=== PATIENT | female | born 1975 | race American Indian/Alaskan Native ===

== ENCOUNTER 2020-09-15 14:44 | Inpatient (IN) | payer SELFPAY ==
[2020-09-15 17:53] LABS: Hemoglobin 6.2 gm/dl (10.1-14.3); Mean Corpuscular HGB Conc 32 % (30-34); Mean Corpuscular Volume 75 fl (79-97); Platelet Count 111 K/mm3 (140-440); Red Blood Count 2.62 M/mm3 (3.65-5.03); Red Cell Distribution Width 19.4 % (13.2-15.2)
[2020-09-15 18:02] LABS: Albumin 3.7 g/dL (3.9-5); Calcium 8.7 mg/dL (8.4-10.2)
--- NOTE | 2020-09-15 18:05 | Event Note ---
ED Screening Note Date of service: 09/15/20 Time: 18:04 ED Screening Note: 45-year-old -[place] female presents to the emergency room for 2-week history of vaginal bleeding. Patient has a history of hypertension and has not been taking any medications. Review of labs shows that patient's creatinine is 5.2 her GFR is 11 with no history of kidney failure. Patient has a negative test. This initial assessment/diagnostic orders/clinical plan/treatment(s) is/are subject to change based on patients health status, clinical progression and re- assessment by fellow clinical providers in the ED. Further treatment and workup at subsequent clinical providers discretion. Patient/guardian urged not to elope from the ED as their condition may be serious if not clinically assessed and managed. Initial orders include: Labs have been ordered. inform Dr. Pryor of patient's condition
[2020-09-15 18:07] LABS: Hematocrit 19.7 % (30.3-42.9)
[2020-09-15] MEDS ORDERED: ASPIRIN 325 MG TAB PO ONE (18:10)
[2020-09-15] MEDS ORDERED: niCARdipine DRIP 40 MG/200 ML BAG IV ONE (19:02)
[2020-09-15] MEDS ORDERED: SODIUM CHLORIDE 0.9% 500 ML 500 ML IV ONE (19:11)
[2020-09-15 19:15] LABS: Total Cells Counted 100
[2020-09-15 19:16] LABS: Anisocytosis Few; Hypochromasia 1+
--- NOTE | 2020-09-15 19:19 | Emergency Department Report ---
ED Female HPI - General Chief complaint: Vaginal Bleeding Stated complaint: ABD PAIN/HEAVING BLEEDING Time Seen by Provider: 09/15/20 19:01 Source: patient Mode of arrival: Ambulatory Limitations: No Limitations - History of Present Illness Initial comments: 45-year-old female with a past medical history of hypertension and obesity presents to the hospital complaints of vaginal bleeding since August 20. Patient had her menses patient states she had a heavy menses which progressed to worsening bleeding with multiple large blood clots. She states bleeding is late today but she is having generalized weakness, dyspnea on exertion, fatigue, and palpitations. Patient denies chest pressure but states she has a gas feeling in her chest. Patient states she does have a history of heavy menses but denies irregular or prolonged vaginal bleeding. She has a history of hypertension however, she has been off of meds for at least 1 year. She denies cardiac history, headache, or decrease in urine output. - Related Data Allergies Allergy/AdvReac Type Severity Reaction Status Date / Time No Known Allergies Allergy Unverified 09/15/20 16:52 ED Review of Systems ROS: Stated complaint: ABD PAIN/HEAVING BLEEDING Other details as noted in HPI Comment: All other systems reviewed and negative ED Past Medical Hx - Past Medical History Hx Hypertension: Yes - Surgical History Past Surgical History?: No - Social History Smoking Status: Never Smoker ED Physical Exam - General Limitations: No Limitations - Other Other exam information: General: No acute distress Head: Atraumatic Eyes: normal appearance ENT: Moist mucous membranes Neck: Normal appearance, no midline tenderness Chest: Clear to auscultation bilaterally CV: Mild tachycardia, regular rhythm Abdomen: Soft, normal bowel sounds, nontender, nondistended, no rebound or guarding Back: Normal inspection Extremity: Normal inspection, full range of motion, no calf tenderness or leg edema Neuro: Alert O x 3, no facial asymmetry, speech clear, no gross motor sensory deficit Psych: Appropriate behavior Skin: No rash ED Course Vital Signs 09/15/20 09/15/20 09/15/20 16:51 19:04 19:15 Temperature 98.1 F 98.1 F Pulse Rate 110 H 110 H 101 H Respiratory 18 18 23 Rate Blood Pressure 245/142 250/147 Blood Pressure 250/147 [Right] O2 Sat by Pulse 98 100 99 Oximetry 09/15/20 09/15/20 09/15/20 19:31 19:45 20:00 Temperature Pulse Rate 101 H 98 H 98 H Respiratory 24 18 17 Rate Blood Pressure 250/147 250/147 250/147 Blood Pressure [Right] O2 Sat by Pulse 98 99 99 Oximetry 09/15/20 09/15/20 09/15/20 20:16 20:30 20:46 Temperature Pulse Rate 112 H Respiratory 16 Rate Blood Pressure 230/121 182/106 154/82 Blood Pressure [Right] O2 Sat by Pulse 98 94 96 Oximetry 09/15/20 09/15/20 09/15/20 21:00 21:15 21:30 Temperature Pulse Rate 123 H Respiratory 21 Rate Blood Pressure 154/82 174/100 183/94 Blood Pressure [Right] O2 Sat by Pulse 100 97 95 Oximetry 09/15/20 09/15/20 09/15/20 21:45 21:59 22:00 Temperature 98.3 F Pulse Rate 124 H 115 H 117 H Respiratory 24 16 18 Rate Blood Pressure 165/93 165/93 166/105 Blood Pressure [Right] O2 Sat by Pulse 93 96 94 Oximetry 09/15/20 09/15/20 09/15/20 22:14 22:15 22:30 Temperature 98.3 F Pulse Rate 117 H 114 H 117 H Respiratory 16 13 14 Rate Blood Pressure 155/93 155/93 164/101 Blood Pressure [Right] O2 Sat by Pulse 97 93 97 Oximetry 09/15/20 09/15/20 09/15/20 22:44 22:46 23:00 Temperature 98.2 F Pulse Rate 110 H 132 H 110 H Respiratory 16 23 15 Rate Blood Pressure 191/118 199/101 191/118 Blood Pressure [Right] O2 Sat by Pulse 96 99 99 Oximetry 09/15/20 09/15/20 09/16/20 23:14 23:15 00:03 Temperature 98.2 F 97.8 F Pulse Rate 110 H 109 H 118 H Respiratory 16 19 20 Rate Blood Pressure 205/122 205/122 Blood Pressure 166/100 [Right] O2 Sat by Pulse 95 98 Oximetry - Reevaluation(s) Reevaluation #1: 09/15/20 21:13 second trop stable without increase - Consultations Consultation #1: 09/15/20 19:26 case d/w Dr Montes nephrology,Renal US pending. will consult case d/w Dr K nuñez Cardiology, no heparin recommended at this time. Agrees to recheck troponin and will consult 09/15/20 19:43 Dr Negron,BLANKING PRESS OPERATOR, Pelvis/Trans vag US pending, Will consult 09/15/20 21:17 case d/w Dr Orellana ICU attending since pt is an ICU admission ED Medical Decision Making - Lab Data Result diagrams: 09/15/20 17:17 09/15/20 17:17 Lab Results 09/15/20 09/15/20 09/15/20 Range/Units 17:17 17:17 17:17 WBC 9.3 (4.5-11.0) K/mm3 RBC 2.62 L (3.65-5.03) M/mm3 Hgb 6.2 L (10.1-14.3) gm/dl Hct 19.7 L* (30.3-42.9) % MCV 75 L (79-97) fl MCH 24 L (28-32) pg MCHC 32 (30-34) % RDW 19.4 H (13.2-15.2) % Plt Count 111 L (140-440) K/mm3 Add Manual Diff Complete Total Counted 100 Seg Neuts % (Manual) 62.0 (40.0-70.0) % Lymphocytes % (Manual) 21.0 (13.4-35.0) % Monocytes % (Manual) 11.0 H (0.0-7.3) % Eosinophils % (Manual) 5.0 H (0.0-4.3) % Basophils % (Manual) 1.0 (0.0-1.8) % Nucleated RBC % Not Reportable Seg Neutrophils # Man 5.8 (1.8-7.7) K/mm3 Band Neutrophils # 0.0 K/mm3 Lymphocytes # (Manual) 2.0 (1.2-5.4) K/mm3 Abs React Lymphs (Man) 0.0 K/mm3 Monocytes # (Manual) 1.0 H (0.0-0.8) K/mm3 Eosinophils # (Manual) 0.5 H (0.0-0.4) K/mm3 Basophils # (Manual) 0.1 (0.0-0.1) K/mm3 Metamyelocytes # 0.0 K/mm3 Myelocytes # 0.0 K/mm3 Promyelocytes # 0.0 K/mm3 Blast Cells # 0.0 K/mm3 WBC Morphology Not Reportable Hypersegmented Neuts Not Reportable Hyposegmented Neuts Not Reportable Hypogranular Neuts Not Reportable Smudge Cells Not Reportable Toxic Granulation Not Reportable Toxic Vacuolation Not Reportable Dohle Bodies Not Reportable Pelger-Huet Anomaly Not Reportable Apolinar Rods Not Reportable Platelet Estimate Not Reportable Clumped Platelets Not Reportable Plt Clumps, EDTA Not Reportable Large Platelets Not Reportable Giant Platelets Not Reportable Platelet Satelliting Not Reportable Plt Morphology Comment Not Reportable RBC Morphology Not Reportable Dimorphic RBCs Not Reportable Polychromasia Not Reportable Hypochromasia 1+ Poikilocytosis Not Reportable Anisocytosis Few Microcytosis Few Macrocytosis Not Reportable Spherocytes Not Reportable Pappenheimer Bodies Not Reportable Sickle Cells Not Reportable Target Cells Not Reportable Tear Drop Cells Not Reportable Ovalocytes Not Reportable Helmet Cells Not Reportable [place] Bodies Not Reportable [place] Rings Not Reportable [place] Cells Not Reportable Bite Cells Not Reportable Crenated Cell Not Reportable Elliptocytes Not Reportable Acanthocytes (Spur) Not Reportable Rouleaux Not Reportable Hemoglobin C Crystals Not Reportable Schistocytes Not Reportable Malaria parasites Not Reportable Malcolm Bodies Not Reportable Hem Pathologist Commnt No Sodium 137 (137-145) mmol/L Potassium 3.4 L (3.6-5.0) mmol/L Chloride 96.4 L (98-107) mmol/L Carbon Dioxide 32 H (22-30) mmol/L Anion Gap 12 mmol/L BUN 49 H (7-17) mg/dL Creatinine 5.2 H (0.6-1.2) mg/dL Estimated GFR 11 ml/min BUN/Creatinine Ratio 9 % Glucose 114 H (65-100) mg/dL Calcium 8.7 (8.4-10.2) mg/dL Total Bilirubin 0.20 (0.1-1.2) mg/dL AST 17 (5-40) units/L ALT 14 (7-56) units/L Alkaline Phosphatase 49 (35-129) units/L Troponin T (0.00-0.029) ng/mL Total Protein 6.9 (6.3-8.2) g/dL Albumin 3.7 L (3.9-5) g/dL Albumin/Globulin Ratio 1.2 % HCG, Quant (0-4) mIU/mL Blood Type A POSITIVE Antibody Screen Negative Crossmatch See Detail 09/15/20 09/15/20 Range/Units 17:17 17:17 WBC (4.5-11.0) K/mm3 RBC (3.65-5.03) M/mm3 Hgb (10.1-14.3) gm/dl Hct (30.3-42.9) % MCV (79-97) fl MCH (28-32) pg MCHC (30-34) % RDW (13.2-15.2) % Plt Count (140-440) K/mm3 Add Manual Diff Total Counted Seg Neuts % (Manual) (40.0-70.0) % Lymphocytes % (Manual) (13.4-35.0) % Monocytes % (Manual) (0.0-7.3) % Eosinophils % (Manual) (0.0-4.3) % Basophils % (Manual) (0.0-1.8) % Nucleated RBC % Seg Neutrophils # Man (1.8-7.7) K/mm3 Band Neutrophils # K/mm3 Lymphocytes # (Manual) (1.2-5.4) K/mm3 Abs React Lymphs (Man) K/mm3 Monocytes # (Manual) (0.0-0.8) K/mm3 Eosinophils # (Manual) (0.0-0.4) K/mm3 Basophils # (Manual) (0.0-0.1) K/mm3 Metamyelocytes # K/mm3 Myelocytes # K/mm3 Promyelocytes # K/mm3 Blast Cells # K/mm3 WBC Morphology Hypersegmented Neuts Hyposegmented Neuts Hypogranular Neuts Smudge Cells Toxic Granulation Toxic Vacuolation Dohle Bodies Pelger-Huet Anomaly Apolinar Rods Platelet Estimate Clumped Platelets Plt Clumps, EDTA Large Platelets Giant Platelets Platelet Satelliting Plt Morphology Comment RBC Morphology Dimorphic RBCs Polychromasia Hypochromasia Poikilocytosis Anisocytosis Microcytosis Macrocytosis Spherocytes Pappenheimer Bodies Sickle Cells Target Cells Tear Drop Cells Ovalocytes Helmet Cells [place] Bodies [place] Rings Maria Elena Cells Bite Cells Crenated Cell Elliptocytes Acanthocytes (Spur) Rouleaux Hemoglobin C Crystals Schistocytes Malaria parasites Malcolm Bodies Hem Pathologist Commnt Sodium (137-145) mmol/L Potassium (3.6-5.0) mmol/L Chloride (98-107) mmol/L Carbon Dioxide (22-30) mmol/L Anion Gap mmol/L BUN (7-17) mg/dL Creatinine (0.6-1.2) mg/dL Estimated GFR ml/min BUN/Creatinine Ratio % Glucose (65-100) mg/dL Calcium (8.4-10.2) mg/dL Total Bilirubin (0.1-1.2) mg/dL AST (5-40) units/L ALT (7-56) units/L Alkaline Phosphatase (35-129) units/L Troponin T 0.092 H (0.00-0.029) ng/mL Total Protein (6.3-8.2) g/dL Albumin (3.9-5) g/dL Albumin/Globulin Ratio % HCG, Quant < 2 (0-4) mIU/mL Blood Type Antibody Screen Crossmatch - EKG Data -: EKG Interpreted by De EKG shows normal: sinus rhythm, ST-T waves (LVH with strain pattern lateral T wave inversions) Rate: tachycardia (115) - EKG Data When compared to previous EKG there are: previous EKG unavailable - Radiology Data Radiology results: report reviewed Chest x-ray: Possible small left pleural effusion Pelvic ultrasound: 5.6 cm cystic ovarian lesion without evidence of abnormal vascularity or definite soft tissue component or internal echogenicity on this slightly limited examination. Recommend further evaluation with repeat ultrasound in 8 to 12 weeks. 5 cm uterine fibroid Renal ultrasound: Slight limited examination with echogenic appearance of the kidneys and possible cortical thinning. Finding suggest chronic medical renal disease. No evidence of obstructive uropathy - Medical Decision Making 45-year-old female presents to the hospital heavy vaginal bleeding and symptoms of symptomatic anemia. Patient states vaginal bleeding is now smoking pipe repairer. Hemoglobin 6.2. 1 unit of PRBC ordered. Ultrasound ordered and pending. BLANKING PRESS OPERATOR consulted and will evaluate. Patient also has significantly elevated blood pressure with renal insufficiency (no previous creatinine for comparison and patient denies no history), and elevated troponin. Cardene drip initiated for hypertensive emergency. EKG suggestive of LVH with strain without acute ST elevation MT. Chest very suggestive of small pleural effusion. Case discussed with fundraising sale representative and heparin not recommended at this time. P.o. aspirin provided. Repeat troponin pending. Case also discussed with geosciences faculty member. Renal ultrasound pending and will follow. Case discussed with hospitalist Dr. Hatfield for admission. Critical Care Time: Yes Critical care time in (mins) excluding proc time.: 35 Critical care attestation.: If time is entered above; I have spent that time in minutes in the direct care of this critically ill patient, excluding procedure time. ED Disposition Clinical Impression: Hypertensive emergency, Renal insufficiency, Menorrhagia, Symptomatic anemia, Elevated troponin, Noncompliance with medication regimen Disposition: OP ADMIT IP TO THIS HOSP Is pt being admited?: Yes Condition: Stable Time of Disposition: 19:48 (Dr Hatfield/hosp)
--- NOTE | 2020-09-15 19:29 | XRay Report ---
CHEST 1 VIEW 09/15/2020 6:59 PM INDICATION / CLINICAL INFORMATION: dizziness. Abdominal pain with weakness and dizziness. COMPARISON: None available. FINDINGS: SUPPORT DEVICES: None. HEART / MEDIASTINUM: No significant abnormality. LUNGS / PLEURA: No acute airspace disease. Possible small left pleural effusion. No pneumothorax. ADDITIONAL FINDINGS: No significant additional findings. IMPRESSION: 1. Possible small left pleural effusion. Signer Name: Derick John MD Signed: 09/15/2020 7:25 PM Workstation Name: [id number]
[2020-09-15] MEDS ORDERED: ONDANSETRON 4 MG/2 ML INJ IV PRN (21:00)
[2020-09-15] MEDS ORDERED: ALPRAZolam 0.5 MG TAB PO ONE (21:13)
[2020-09-15] MEDS ORDERED: oxyCODONE /ACETAMINOPHEN 5-325MG TAB PO ONE (21:15)
[2020-09-15] MEDS ORDERED: oxyCODONE /ACETAMINOPHEN 5-325MG TAB PO PRN (21:36)
[2020-09-15 21:38] LABS: Chol/HDL Ratio 3.11 %
--- NOTE | 2020-09-15 22:43 | History and Physical Report ---
History of Present Illness Date of examination: 09/15/20 Date of admission: 09/15/20 19:48 Chief complaint: of vaginal bleeding x2 weeks History of present illness: 45-year-old -[place] female with history of uncontrolled hypertension who presents to [facility] ED with complaints of prolonged vaginal bleeding x2 weeks. Patient states she had a heavy menstrual cycle which progressed to worsening bleeding with multiple large clots. Patient admits to history of menorrhagia but denies prolonged vaginal bleeding. Additionally she complains of gene ralized weakness, dyspnea on exertion, fatigue and palpitations. Patient has history of hypertension but admits to being off medication for the past year. While in the ED patient blood pressure was 250/140 and she was noted to be in hypertensive urgency, subsequently started on heparin drip. At time of my examination patient is tearful and seems a bit anxious. She states that she is upset that she let her health get out of control. Denies chest pain fever, chills, sore throat, hematuria, hematochezia, abdominal pain, oliguria, recent sick contacts Past History Past Medical History: hypertension, other (Menorrhagia) Past Surgical History: No surgical history Social history: single, full code, other (Lives with daughter). denies: smoking, alcohol abuse, prescription drug abuse, IV drug use Family history: hypertension Medications and Allergies Allergies Allergy/AdvReac Type Severity Reaction Status Date / Time No Known Allergies Allergy Unverified 09/15/20 16:52 Active Meds: Active Medications Acetaminophen (Acetaminophen 325 Mg Tab) 650 mg PO Q4H PRN PRN Reason: Pain MILD(1-3)/Fever >100.5/ESPARZA Alprazolam (Alprazolam 0.5 Mg Tab) 0.5 mg PO Q8H PRN PRN Reason: Anxiety Docusate Sodium (Docusate Sodium 100 Mg Cap) 100 mg PO BID HANNAH Nicardipine/Sodium Chloride (Cardene Drip 40 Mg/200 Ml) 40 mg in 200 mls @ 25 mls/hr IV ONCE ONE; Protocol Stop: 09/16/20 03:01 Last Titration: 09/15/20 21:22 Dose: 2.5 mg/hr, 12.5 mls/hr Documented by: Ondansetron HCl (Ondansetron 4 Mg/2 Ml Inj) 4 mg IV Q8H PRN PRN Reason: Nausea And Vomiting Oxycodone/Acetaminophen (Oxycodone /Acetaminophen 5-325mg Tab) 1 tab PO Q4H PRN PRN Reason: Pain, Moderate (4-6) Sodium Chloride (Sodium Chloride 0.9% 10 Ml Flush Syringe) 10 ml IV BID HANNAH Sodium Chloride (Sodium Chloride 0.9% 10 Ml Flush Syringe) 10 ml IV PRN PRN PRN Reason: LINE FLUSH Review of Systems All systems: negative (Except as noted in HPI) Exam - Constitutional Vitals: Temp Pulse Resp BP Pulse Ox 98.3 F 117 H 18 166/105 94 09/15/20 21:59 09/15/20 22:00 09/15/20 22:00 09/15/20 22:00 09/15/20 22:00 HEART Score - HEART Score Troponin: Troponin T 0.090 ng/mL (0.00-0.029) H 09/15/20 20:19 Results - Labs CBC & Chem 7: 09/15/20 17:17 09/15/20 17:17 Labs: Laboratory Last Values WBC 9.3 K/mm3 (4.5-11.0) 09/15/20 17:17 RBC 2.62 M/mm3 (3.65-5.03) L 09/15/20 17:17 Hgb 6.2 gm/dl (10.1-14.3) L 09/15/20 17:17 Hct 19.7 % (30.3-42.9) L* 09/15/20 17:17 MCV 75 fl (79-97) L 09/15/20 17:17 MCH 24 pg (28-32) L 09/15/20 17:17 MCHC 32 % (30-34) 09/15/20 17:17 RDW 19.4 % (13.2-15.2) H 09/15/20 17:17 Plt Count 111 K/mm3 (140-440) L 09/15/20 17:17 Add Manual Diff Complete 09/15/20 17:17 Total Counted 100 09/15/20 17:17 Seg Neuts % (Manual) 62.0 % (40.0-70.0) 09/15/20 17:17 Lymphocytes % (Manual) 21.0 % (13.4-35.0) 09/15/20 17:17 Monocytes % (Manual) 11.0 % (0.0-7.3) H 09/15/20 17:17 Eosinophils % (Manual) 5.0 % (0.0-4.3) H 09/15/20 17:17 Basophils % (Manual) 1.0 % (0.0-1.8) 09/15/20 17:17 Nucleated RBC % Not Reportable 09/15/20 17:17 Seg Neutrophils # Man 5.8 K/mm3 (1.8-7.7) 09/15/20 17:17 Band Neutrophils # 0.0 K/mm3 09/15/20 17:17 Lymphocytes # (Manual) 2.0 K/mm3 (1.2-5.4) 09/15/20 17:17 Abs React Lymphs (Man) 0.0 K/mm3 09/15/20 17:17 Monocytes # (Manual) 1.0 K/mm3 (0.0-0.8) H 09/15/20 17:17 Eosinophils # (Manual) 0.5 K/mm3 (0.0-0.4) H 09/15/20 17:17 Basophils # (Manual) 0.1 K/mm3 (0.0-0.1) 09/15/20 17:17 Metamyelocytes # 0.0 K/mm3 09/15/20 17:17 Myelocytes # 0.0 K/mm3 09/15/20 17:17 Promyelocytes # 0.0 K/mm3 09/15/20 17:17 Blast Cells # 0.0 K/mm3 09/15/20 17:17 WBC Morphology Not Reportable 09/15/20 17:17 Hypersegmented Neuts Not Reportable 09/15/20 17:17 Hyposegmented Neuts Not Reportable 09/15/20 17:17 Hypogranular Neuts Not Reportable 09/15/20 17:17 Smudge Cells Not Reportable 09/15/20 17:17 Toxic Granulation Not Reportable 09/15/20 17:17 Toxic Vacuolation Not Reportable 09/15/20 17:17 Dohle Bodies Not Reportable 09/15/20 17:17 Pelger-Huet Anomaly Not Reportable 09/15/20 17:17 Apolinar Rods Not Reportable 09/15/20 17:17 Platelet Estimate Not Reportable 09/15/20 17:17 Clumped Platelets Not Reportable 09/15/20 17:17 Plt Clumps, EDTA Not Reportable 09/15/20 17:17 Large Platelets Not Reportable 09/15/20 17:17 Giant Platelets Not Reportable 09/15/20 17:17 Platelet Satelliting Not Reportable 09/15/20 17:17 Plt Morphology Comment Not Reportable 09/15/20 17:17 RBC Morphology Not Reportable 09/15/20 17:17 Dimorphic RBCs Not Reportable 09/15/20 17:17 Polychromasia Not Reportable 09/15/20 17:17 Hypochromasia 1+ 09/15/20 17:17 Poikilocytosis Not Reportable 09/15/20 17:17 Anisocytosis Few 09/15/20 17:17 Microcytosis Few 09/15/20 17:17 Macrocytosis Not Reportable 09/15/20 17:17 Spherocytes Not Reportable 09/15/20 17:17 Pappenheimer Bodies Not Reportable 09/15/20 17:17 Sickle Cells Not Reportable 09/15/20 17:17 Target Cells Not Reportable 09/15/20 17:17 Tear Drop Cells Not Reportable 09/15/20 17:17 Ovalocytes Not Reportable 09/15/20 17:17 Helmet Cells Not Reportable 09/15/20 17:17 [place] Bodies Not Reportable 09/15/20 17:17 [place] Rings Not Reportable 09/15/20 17:17 [place] Cells Not Reportable 09/15/20 17:17 Bite Cells Not Reportable 09/15/20 17:17 Crenated Cell Not Reportable 09/15/20 17:17 Elliptocytes Not Reportable 09/15/20 17:17 Acanthocytes (Spur) Not Reportable 09/15/20 17:17 Rouleaux Not Reportable 09/15/20 17:17 Hemoglobin C Crystals Not Reportable 09/15/20 17:17 Schistocytes Not Reportable 09/15/20 17:17 Malaria parasites Not Reportable 09/15/20 17:17 Malcolm Bodies Not Reportable 09/15/20 17:17 Hem Pathologist Commnt No 09/15/20 17:17 Sodium 137 mmol/L (137-145) 09/15/20 17:17 Potassium 3.4 mmol/L (3.6-5.0) L 09/15/20 17:17 Chloride 96.4 mmol/L (98-107) L 09/15/20 17:17 Carbon Dioxide 32 mmol/L (22-30) H 09/15/20 17:17 Anion Gap 12 mmol/L 09/15/20 17:17 BUN 49 mg/dL (7-17) H 09/15/20 17:17 Creatinine 5.2 mg/dL (0.6-1.2) H 09/15/20 17:17 Estimated GFR 11 ml/min 09/15/20 17:17 BUN/Creatinine Ratio 9 % 09/15/20 17:17 Glucose 114 mg/dL (65-100) H 09/15/20 17:17 Calcium 8.7 mg/dL (8.4-10.2) 09/15/20 17:17 Total Bilirubin 0.20 mg/dL (0.1-1.2) 09/15/20 17:17 AST 17 units/L (5-40) 09/15/20 17:17 ALT 14 units/L (7-56) 09/15/20 17:17 Alkaline Phosphatase 49 units/L (35-129) 09/15/20 17:17 Troponin T 0.090 ng/mL (0.00-0.029) H 09/15/20 20:19 Total Protein 6.9 g/dL (6.3-8.2) 09/15/20 17:17 Albumin 3.7 g/dL (3.9-5) L 09/15/20 17:17 Albumin/Globulin Ratio 1.2 % 09/15/20 17:17 Triglycerides 116 mg/dL (2-149) 09/15/20 20:19 Cholesterol 159 mg/dL (50-199) 09/15/20 20:19 LDL Cholesterol Direct 98 mg/dL (50-130) 09/15/20 20:19 HDL Cholesterol 51 mg/dL (40-59) 09/15/20 20:19 Cholesterol/HDL Ratio 3.11 % 09/15/20 20:19 HCG, Quant < 2 mIU/mL (0-4) 09/15/20 17:17 Blood Type A POSITIVE 09/15/20 17:17 Antibody Screen Negative 09/15/20 17:17 Crossmatch See Detail 09/15/20 17:17 - Imaging and Cardiology Chest x-ray: report reviewed (Possible small left pleural effusion), image reviewed Young/IV: IV Catheter Type [Left Forearm INT / Saline Lock ] IV Catheter Type [Right INT / Saline Lock Antecubital] Assessment and Plan Assessment and plan: 45-year-old -[place] female with history of uncontrolled hypertension who presents to [facility] ED with complaints of prolonged vaginal bleeding x2 weeks. Hypertensive urgency -BP on admission 250/140 -Hx uncontrolled hypertension -Continue to monitor BP -On Cardene drip -Resume home antihypertensive meds to optimize BP, when appropriate Vaginal bleeding -Complains of heavy vaginal bleeding x2 weeks -History of menorrhagia -Ultrasound pelvis/transvaginal pending -MAINSPRING FABRICATION SUPERVISOR (Dr. Negron) consulted Anemia -Secondary to prolonged vaginal bleeding -Hemoglobin on admission 6.2 -1 unit PRBC ordered in ED, transfusion pending -Continue to monitor hemoglobin -Transfuse as needed Elevated troponin -Troponin now 0.090 (0.092 on presentation to ED) -We will continue to trend -Cardiology consulted (Dr. Haile), recommendations appreciated TAMARA -Cr on admission 5.2 -?? 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 Anton) -Avoid nephrotoxic agents -Renal dose all meds -Monitor renal function Advance Directives: No VTE prophylaxis?: Chemical Plan of care discussed with patient/family: Yes
--- NOTE | 2020-09-15 22:56 | Ultrasound Report ---
ULTRASOUND PELVIS INDICATION / CLINICAL INFORMATION: vaginal bleeding anemia. TECHNIQUE: Transabdominal. Duplex Color Doppler used: Yes. COMPARISON: None available FINDINGS: Technically difficult examination secondary to overlying bowel gas and patient positioning/ body habitus. UTERUS: Mildly enlarged at 11.5 x 5.1 x 6.1 cm. Heterogeneously echogenic focus at the anterosuperior fundus measuring 4.9 cm likely representing a fibroid. Endometrial thickness is 4 mm in this premeno pausal patient. RIGHT ADNEXA: Not visualized. LEFT ADNEXA: Enlarged left ovary measuring 6.6 x 5.2 x 5.4 cm. 5.4 by 4.3 x 3.4 cm cystic-appearing o varian lesion. No associated vascularity. Normal color Doppler blood flow. URINARY BLADDER: No significant abnormality. FREE FLUID: None. ADDITIONAL FINDINGS: None. IMPRESSION: 1. 5.4 cm cystic ovarian lesion without evidence of abnormal vascularity or definite soft tissue comp onent or internal echogenicity on this slightly limited examination. Recommend further evaluation wit h repeat ultrasound in 8-12 weeks. 2. 5 cm uterine fibroid. Signer Name: Carmine Rocha MD Signed: 09/15/2020 10:52 PM Workstation Name: [id number]
--- NOTE | 2020-09-15 22:58 | Ultrasound Report ---
ULTRASOUND RENAL INDICATION / CLINICAL INFORMATION: renal failure. COMPARISON: None available. FINDINGS: Technically difficult examination secondary to overlying bowel gas, patient positioning, an d patient body habitus. RIGHT KIDNEY: Length = 9.0 cm. - Echogenicity: Increased - Cortical Thickness: Decreased 0.7 cm. - Hydronephrosis: None. - Cyst or mass: No significant abnormality. - Stones: None seen. LEFT KIDNEY: Length = 10.06). cm. - Echogenicity: Increased. - Cortical Thickness: Decreased at 0.7 cm. - Hydronephrosis: None. - Cyst or mass: No significant abnormality. - Stones: None seen. URINARY BLADDER: No significant abnormality. FREE FLUID: None. ADDITIONAL FINDINGS: None. IMPRESSION: 1. Slightly limited examination with echogenic appearance of the kidneys and possible cortical thinni ng. Findings suggest chronic medical renal disease. No evidence of obstructive uropathy. Signer Name: Carmine Rocha MD Signed: 09/15/2020 10:54 PM Workstation Name: [email or web address]
--- NOTE | 2020-09-15 23:36 | Consultation ---
History of Present Illness Consult date: 09/15/20 Reason for consult: menorrhagia History of present illness: This is a 45-year-old female 4 para 3-0-1-3 who presented to the with anemia and abnormal uterine bleeding. Patient gives a history of heavy bleeding every month for 7 to 14 days of the last 2 years. Patient states however she started bleeding August 20 and has been bleeding ever since with intermittent heavy bleeding involving clots. She has not had this bleeding evaluated however does state that she knew that she was anemic. On arrival to the emergency room patient was noted to have a hemoglobin of 6.2. She states bleeding has decreased significantly. Of note patient states she had a Nexplanon placed approximately 4 years ago. Past History Past Medical History: hypertension Past Surgical History: [employer]CH[employer]IST History: denies: abnormal PAP smear, chlamydia, fibroids, gonorrhea, hepatitis B, hepatitis C, herpes, HIV, syphilis, trichomonas Social history: smoking (Occasional black and mild). denies: alcohol abuse, prescription drug abuse - Obstetrical History : 4 Para: 3 Hx # Term Pregnancies: 3 (All vaginal delivery) Spontaneous Abortions: 1 Number of Living Children: 3 Medications and Allergies Allergies Allergy/AdvReac Type Severity Reaction Status Date / Time No Known Allergies Allergy Unverified 09/15/20 16:52 Active Meds: Active Medications Acetaminophen (Acetaminophen 325 Mg Tab) 650 mg PO Q4H PRN PRN Reason: Pain MILD(1-3)/Fever >100.5/ESPARZA Alprazolam (Alprazolam 0.5 Mg Tab) 0.5 mg PO Q8H PRN PRN Reason: Anxiety Docusate Sodium (Docusate Sodium 100 Mg Cap) 100 mg PO BID HANNAH Nicardipine/Sodium Chloride (Cardene Drip 40 Mg/200 Ml) 40 mg in 200 mls @ 25 mls/hr IV ONCE ONE; Protocol Stop: 09/16/20 03:01 Last Titration: 09/15/20 23:17 Dose: 5 mg/hr, 25 mls/hr Documented by: Ondansetron HCl (Ondansetron 4 Mg/2 Ml Inj) 4 mg IV Q8H PRN PRN Reason: Nausea And Vomiting Oxycodone/Acetaminophen (Oxycodone /Acetaminophen 5-325mg Tab) 1 tab PO Q4H PRN PRN Reason: Pain, Moderate (4-6) Potassium Chloride (Potassium Chloride Er 20 Meq Tab) 20 meq PO ONCE ONE Stop: 09/15/20 23:46 Sodium Chloride (Sodium Chloride 0.9% 10 Ml Flush Syringe) 10 ml IV BID HANNAH Sodium Chloride (Sodium Chloride 0.9% 10 Ml Flush Syringe) 10 ml IV PRN PRN PRN Reason: LINE FLUSH - Vital Signs Vital signs: Vital Signs Temp Pulse Resp BP Pulse Ox 98.1 F 110 H 18 245/142 98 09/15/20 16:51 09/15/20 16:51 09/15/20 16:51 09/15/20 16:51 09/15/20 16:51 Temp Pulse Resp BP Pulse Ox 98.2 F 109 H 19 205/122 95 09/15/20 23:14 09/15/20 23:15 09/15/20 23:15 09/15/20 23:15 09/15/20 23:15 - Physical Exam Breasts: Positive: deferred Abdomen: Positive: soft. Negative: distention, tenderness, guarding, mass, rigidity Genitourinary (Female): Positive: normal external genitalia, normal perenium Vulva: both: normal Vagina: Positive: normal moisture, other (Small amount of blood in the vagina but no active bleeding noted from the cervix.) Cervix: Positive: other (Grossly normal) Uterus: Positive: other (Difficult to palpate due to guarding) Adnexa: both: normal ( difficult to palpate due to guarding) Anus/Rectum: Positive: normal perianal skin Extremities: Positive: normal, other (Nexplanon palpated in her left medial upper arm) Results Result Diagrams: 09/15/20 17:17 09/15/20 17:17 Abnormal lab results 09/15/20 09/15/20 09/15/20 Range/Units 17:17 17:17 17:17 RBC 2.62 L (3.65-5.03) M/mm3 Hgb 6.2 L (10.1-14.3) gm/dl Hct 19.7 L* (30.3-42.9) % MCV 75 L (79-97) fl MCH 24 L (28-32) pg RDW 19.4 H (13.2-15.2) % Plt Count 111 L (140-440) K/mm3 Monocytes % (Manual) 11.0 H (0.0-7.3) % Eosinophils % (Manual) 5.0 H (0.0-4.3) % Monocytes # (Manual) 1.0 H (0.0-0.8) K/mm3 Eosinophils # (Manual) 0.5 H (0.0-0.4) K/mm3 Potassium 3.4 L (3.6-5.0) mmol/L Chloride 96.4 L (98-107) mmol/L Carbon Dioxide 32 H (22-30) mmol/L BUN 49 H (7-17) mg/dL Creatinine 5.2 H (0.6-1.2) mg/dL Glucose 114 H (65-100) mg/dL Troponin T (0.00-0.029) ng/mL Albumin 3.7 L (3.9-5) g/dL Crossmatch See Detail 09/15/20 09/15/20 Range/Units 17:17 20:19 RBC (3.65-5.03) M/mm3 Hgb (10.1-14.3) gm/dl Hct (30.3-42.9) % MCV (79-97) fl MCH (28-32) pg RDW (13.2-15.2) % Plt Count (140-440) K/mm3 Monocytes % (Manual) (0.0-7.3) % Eosinophils % (Manual) (0.0-4.3) % Monocytes # (Manual) (0.0-0.8) K/mm3 Eosinophils # (Manual) (0.0-0.4) K/mm3 Potassium (3.6-5.0) mmol/L Chloride (98-107) mmol/L Carbon Dioxide (22-30) mmol/L BUN (7-17) mg/dL Creatinine (0.6-1.2) mg/dL Glucose (65-100) mg/dL Troponin T 0.092 H 0.090 H (0.00-0.029) ng/mL Albumin (3.9-5) g/dL Crossmatch All other labs normal. Ultrasound: report reviewed, image reviewed Assessment and Plan - Patient Problems (1) Hypertensive emergency Current Visit: Yes Status: Acute (2) Renal insufficiency Current Visit: Yes Status: Acute (3) Excessive and frequent menstruation with irregular cycle Current Visit: Yes Status: Acute Plan to address problem: Bleeding appears to be controlled right now. Once patient is stable will consider removing Nexplanon however at this point most of the etonogestrel in the Nexplanon has most likely been metabolized and currently she has inert implant remaining in her arm. Due to her uncontrolled hypertension she is not a candidate for combined oral contraceptives however if heavy bleeding should recur will consider a progestin if needed. If bleeding is unresponsive to progestin that she may require short course of IV Premarin. Most importantly patient will require an endometrial biopsy to evaluate for endometrial malignancy. (4) Symptomatic anemia Current Visit: Yes Status: Acute Plan to address problem: Patient is currently receiving 1 unit of packed red blood cells. Hemoglobin needs to be repeated to ensure appropriate response once the unit is completed. (5) Ovarian cyst, left Current Visit: Yes Status: Acute Plan to address problem: Although there appears to be a septation involving the cyst overall it appears to be simple and may be associated with ovulation. She will need a transvaginal ultrasound in 6 weeks to ensure resolution. (6) Fibroid Current Visit: Yes Status: Acute Plan to address problem: Fibroid appears to be subserosal in which case such fibroids are not typically associated with heavy bleeding. However she may be a candidate for uterine fibroid embolization or hysterectomy once endometrial malignancy is ruled out. We will continue to follow along with you.
[2020-09-15] MEDS ORDERED: POTASSIUM CHLORIDE ER 20 MEQ TAB PO ONE (23:45)
[2020-09-16] MEDS: DOCUSATE SODIUM 100 MG CAP PO SCH ×3 (00:52→21:00)
[2020-09-16] MEDS: ALPRAZolam 0.5 MG TAB PO PRN (03:18)
[2020-09-16] MEDS ORDERED: hydrALAZINE 20 MG/1 ML INJ IV PRN (09:17)
--- NOTE | 2020-09-16 09:33 | Consultation ---
History of Present Illness - Reason for Consult Consult date: 09/16/20 acute renal failure, chronic renal failure Requesting physician: LUKE CALLAWAY - History of Present Illness 45-year-old -[place] female with history of uncontrolled hypertension who presents to [facility] ED with complaints of prolonged vaginal bleeding x2 weeks. Patient states she had a heavy menstrual cycle which progressed to worsening bleeding with multiple large clots. Patient admits to history of menorrhagia but denies prolonged vaginal bleeding. Additionally she complains of gener alized weakness, dyspnea on exertion, fatigue and palpitations. Patient has history of hypertension but admits to being off medication for the past year. While in the ED patient blood pressure was 250/140 and she was noted to be in hypertensive urgency, subsequently started on heparin drip. At time of my examination patient is tearful and seems a bit anxious. She states that she is upset that she let her health get out of control. Denies chest pain fever, chills, sore throat, hematuria, hematochezia, abdominal pain, oliguria, recent sick contacts Past History Past Medical History: hypertension, other (Menorrhagia) Past Surgical History: No surgical history Social history: single, full code, other (Lives with daughter). denies: smoking, alcohol abuse, prescription drug abuse, IV drug use Family history: hypertension Past History Past Medical History: hypertension, other (Menorrhagia) Past Surgical History: No surgical history Social history: smoking (Occasional black and mild). denies: alcohol abuse, prescription drug abuse Family history: hypertension Medications and Allergies Allergies Allergy/AdvReac Type Severity Reaction Status Date / Time No Known Allergies Allergy Unverified 09/15/20 16:52 Active Meds: Active Medications Acetaminophen (Acetaminophen 325 Mg Tab) 650 mg PO Q4H PRN PRN Reason: Pain MILD(1-3)/Fever >100.5/ESPARZA Alprazolam (Alprazolam 0.5 Mg Tab) 0.5 mg PO Q8H PRN PRN Reason: Anxiety Last Admin: 09/16/20 03:18 Dose: 0.5 mg Documented by: Amlodipine Besylate (Amlodipine 10 Mg Tab) 10 mg PO QDAY HANNAH Docusate Sodium (Docusate Sodium 100 Mg Cap) 100 mg PO BID HANNAH Last Admin: 09/16/20 00:52 Dose: Not Given Documented by: Hydralazine HCl (Hydralazine 20 Mg/1 Ml Inj) 10 mg IV Q4HR PRN PRN Reason: Hypertension Metoprolol Tartrate (Metoprolol Tartrate 50 Mg Tab) 50 mg PO BID [facility] Ondansetron HCl (Ondansetron 4 Mg/2 Ml Inj) 4 mg IV Q8H PRN PRN Reason: Nausea And Vomiting Oxycodone/Acetaminophen (Oxycodone /Acetaminophen 5-325mg Tab) 1 tab PO Q4H PRN PRN Reason: Pain, Moderate (4-6) Sodium Chloride (Sodium Chloride 0.9% 10 Ml Flush Syringe) 10 ml IV BID [facility] Last Admin: 09/15/20 23:35 Dose: 10 ml Documented by: Sodium Chloride (Sodium Chloride 0.9% 10 Ml Flush Syringe) 10 ml IV PRN PRN PRN Reason: LINE FLUSH Exam - Vital Signs Vital signs: Vital Signs Temp Pulse Resp BP Pulse Ox 98.1 F 110 H 18 245/142 98 09/15/20 16:51 09/15/20 16:51 09/15/20 16:51 09/15/20 16:51 09/15/20 16:51 - Physical Exam Narrative exam: General: No acute distress Head: Atraumatic Eyes: normal appearance ENT: Moist mucous membranes Neck: Normal appearance, no midline tenderness Chest: Clear to auscultation bilaterally CV: Mild tachycardia, regular rhythm Abdomen: Soft, normal bowel sounds, nontender, nondistended, no rebound or guarding Back: Normal inspection Extremity: Normal inspection, full range of motion, no calf tenderness or leg edema Neuro: Alert O x 3, no facial asymmetry, speech clear, no gross motor sensory deficit Psych: Appropriate behavior Skin: No rash Results - Lab Results 09/15/20 17:17 09/15/20 17:17 Most recent lab results Calcium 8.7 mg/dL (8.4-10.2) 09/15/20 17:17 Assessment and Plan Impression: * ARIA on likely ckd of unknown stage * Anemia of ABL POA * Htn emergency * Vaginal bleeding Plan: * follow up renal us with pvr * 24hr urine crcl/protein * control bp-cardene gtt as needed * daily lytes and strict i/os * avoid nephrotoxins * 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
[2020-09-16] MEDS: METOPROLOL TARTRATE 50 MG TAB PO SCH ×2 (09:47→21:00)
[2020-09-16] MEDS: amLODIPine 10 MG TAB PO SCH (09:57)
[2020-09-16] MEDS: ACETAMINOPHEN 325 MG TAB PO PRN (10:01)
--- NOTE | 2020-09-16 10:59 | Consultation ---
History of Present Illness Consult date: 09/16/20 Requesting physician: TONE IRWIN Consult reason: elevated troponin, hypertension History of present illness: The pt is a 45-year-old female with a past medical history of uncontrolled hypertension. She is previously unknown to our practice. She presented with c/o prolonged vaginal bleeding x2 weeks. Patient states she had a heavy menstrual cycle which progressed to worsening bleeding with multiple large clots. Patient admits to history of menorrhagia but denies prolonged vaginal bleeding. Admission BP was noted to be 245/142. She admits that she has been prescribed anti-hypertensive medications but has not taken any prescription medications in over one year. She denies any chest pain, palpitations, n/v, diaphoresis, dizziness or syncope. She denies any prior cardiac issues or cardiac w/u. Past History Past Medical History: hypertension, other (Menorrhagia) Past Surgical History: No surgical history Social history: smoking (Occasional black and mild). denies: alcohol abuse, prescription drug abuse Family history: hypertension Medications and Allergies Allergies Allergy/AdvReac Type Severity Reaction Status Date / Time No Known Allergies Allergy Unverified 09/15/20 16:52 Active Meds: Active Medications Acetaminophen (Acetaminophen 325 Mg Tab) 650 mg PO Q4H PRN PRN Reason: Pain MILD(1-3)/Fever >100.5/ESPAZRA Last Admin: 09/16/20 10:01 Dose: 650 mg Documented by: Alprazolam (Alprazolam 0.5 Mg Tab) 0.5 mg PO Q8H PRN PRN Reason: Anxiety Last Admin: 09/16/20 03:18 Dose: 0.5 mg Documented by: Amlodipine Besylate (Amlodipine 10 Mg Tab) 10 mg PO QDAY [facility] Last Admin: 09/16/20 09:57 Dose: 10 mg Documented by: Clonidine HCl (Clonidine 0.1 Mg Tab) 0.1 mg PO Q8HR [facility] Docusate Sodium (Docusate Sodium 100 Mg Cap) 100 mg PO BID [facility] Last Admin: 09/16/20 09:48 Dose: 100 mg Documented by: Hydralazine HCl (Hydralazine 20 Mg/1 Ml Inj) 10 mg IV Q4HR PRN PRN Reason: Hypertension Last Admin: 09/16/20 09:48 Dose: 10 mg Documented by: Hydralazine HCl (Hydralazine 25 Mg Tab) 50 mg PO Q8HR [facility] Metoprolol Tartrate (Metoprolol Tartrate 50 Mg Tab) 50 mg PO BID [facility] Last Admin: 09/16/20 09:47 Dose: 50 mg Documented by: Ondansetron HCl (Ondansetron 4 Mg/2 Ml Inj) 4 mg IV Q8H PRN PRN Reason: Nausea And Vomiting Oxycodone/Acetaminophen (Oxycodone /Acetaminophen 5-325mg Tab) 1 tab PO Q4H PRN PRN Reason: Pain, Moderate (4-6) Sodium Chloride (Sodium Chloride 0.9% 10 Ml Flush Syringe) 10 ml IV BID [facility] Last Admin: 09/16/20 10:01 Dose: 10 ml Documented by: Sodium Chloride (Sodium Chloride 0.9% 10 Ml Flush Syringe) 10 ml IV PRN PRN PRN Reason: LINE FLUSH Review of Systems Constitutional: no weight loss, no weight gain, no fever, no chills, no sweats Ears, nose, mouth and throat: no ear pain, no nose pain, no sinus pressure, no sinus pain Cardiovascular: high blood pressure, no chest pain, no palpitations, no rapid/irregular heart beat, no edema, no syncope, no lightheadedness, no shortness of breath, no dyspnea on exertion, no paroxysmal nocturnal dyspnea Respiratory: no cough, no shortness of breath, no dyspnea on exertion, no congestion, no wheezing, no pain on inspiration Gastrointestinal: no abdominal pain, no nausea, no vomiting, no diarrhea, no constipation, no change in bowel habits Genitourinary Female: no dyspareunia, no dysmenorrhea, no pelvic pain, no flank pain, no menorrhagia, no dysuria, no urinary frequency, no urgency Musculoskeletal: no neck stiffness, no neck pain Integumentary: no rash, no pruritis, no redness, no sores, no wounds Neurological: no head injury, no paralysis, no weakness, no parathesias, no numbness, no tingling, no seizures, no syncope Psychiatric: no anxiety Endocrine: no cold intolerance, no polyphagia Hematologic/Lymphatic: no easy bruising Allergic/Immunologic: no urticaria Physical Examination Vital Signs Temp Pulse Resp BP Pulse Ox 98.1 F 110 H 18 245/142 98 09/15/20 16:51 09/15/20 16:51 09/15/20 16:51 09/15/20 16:51 09/15/20 16:51 General appearance: no acute distress HEENT: Positive: PERRL Neck: Positive: neck supple, trachea midline Cardiac: Positive: Reg Rate and Rhythm, S1/S2 Lungs: Positive: Decreased Breath Sounds Neuro: Positive: Grossly Intact Abdomen: Negative: Tender Musculoskeletal: No Pain Extremities: Absent: edema Results 09/15/20 17:17 09/15/20 17:17 Cardiac Enzymes 09/15/20 Range/Units 17:17 AST 17 (5-40) units/L Lipids 09/15/20 Range/Units 20:19 Triglycerides 116 (2-149) mg/dL Cholesterol 159 (50-199) mg/dL HDL Cholesterol 51 (40-59) mg/dL Cholesterol/HDL Ratio 3.11 % CBC 09/15/20 Range/Units 17:17 WBC 9.3 (4.5-11.0) K/mm3 RBC 2.62 L (3.65-5.03) M/mm3 Hgb 6.2 L (10.1-14.3) gm/dl Hct 19.7 L* (30.3-42.9) % Plt Count 111 L (140-440) K/mm3 Comprehensive Metabolic Panel 09/15/20 Range/Units 17:17 Sodium 137 (137-145) mmol/L Potassium 3.4 L (3.6-5.0) mmol/L Chloride 96.4 L (98-107) mmol/L Carbon Dioxide 32 H (22-30) mmol/L BUN 49 H (7-17) mg/dL Creatinine 5.2 H (0.6-1.2) mg/dL Glucose 114 H (65-100) mg/dL Calcium 8.7 (8.4-10.2) mg/dL AST 17 (5-40) units/L ALT 14 (7-56) units/L Alkaline Phosphatase 49 (35-129) units/L Total Protein 6.9 (6.3-8.2) g/dL Albumin 3.7 L (3.9-5) g/dL - Imaging and Cardiology Echo: pending EKG: report reviewed, image reviewed EKG interpretations - Telemetry EKG Rhythm: Sinus Rhythm - EKG Sinus rhythms and dysrhythmias: sinus rhythm Assessment and Plan Agree with cardene gtt. Optimize anti-hypertensive regimen. Elevated Vignesh appear c/w NSTEMI type II. Cont to trend Vignesh and f/u ECG in AM. Obtain tte. Will follow. The patient has been seen in conjunction with Dr. Monahan who agrees with the assessment and plan of care. - Patient Problems (1) Uncontrolled hypertension Current Visit: Yes Status: Acute (2) Menorrhagia Current Visit: Yes Status: Acute (3) Anemia Current Visit: Yes Status: Acute (4) Thrombocytopenia Current Visit: Yes Status: Acute (5) Acute renal failure Current Visit: Yes Status: Acute (6) NSTEMI (non-ST elevated myocardial infarction) Current Visit: Yes Status: Acute Plan to address problem: suspect type II
[2020-09-16] MEDS: hydrALAZINE 25 MG TAB PO SCH ×3 (13:36→21:00)
[2020-09-16] MEDS: cloNIDine 0.1 MG TAB PO SCH ×3 (13:36→21:00)
--- NOTE | 2020-09-16 15:07 | Progress Note ---
Assessment and Plan - Patient Problems (1) Acute renal failure Current Visit: Yes Status: Acute Plan to address problem: Patient with acute renal failure. Most likely have significant chronic kidney disease from prolonged uncontrolled hypertension. No indication for hemodialysis today. Spoke with Dr. Echavarria currently under work-up urine protein electrolytes renal ultrasound. Avoid nephrotoxic agents at this time. Avoid JAYDE at this time as well. (2) Anemia Current Visit: Yes Status: Acute Plan to address problem: Anemia secondary to prolonged vaginal bleeding. Most likely has some underlying iron deficiency anemia as well. Packed red blood cells have already been transfused. Awaiting follow-up CBC to see if an additional transfusion kati cated. (3) Elevated troponin Current Visit: Yes Status: Acute Plan to address problem: Most likely secondary to acute kidney injury. Patient is not having any chest pain no shortness of breath no different exertion. Patient did have elevation in troponin. Will treat as non-Q wave [place]. Unable to effectively anticoagulate at this time secondary to active bleeding. Will add beta-danika. We will also add statin as well to patient's regime. Further risk factor stratify with diet education. Patient may be a candidate for further cardiac testing prior to discharge. Patient stable enough now to transfer to telemetry floor. (4) Excessive and frequent menstruation with irregular cycle Current Visit: Yes Status: Acute Plan to address problem: Possibly secondary to fibroid or ovarian cyst. Work-up in progress [employer] following. (5) Hypertensive emergency Current Visit: Yes Status: Acute Plan to address problem: Patient will wean off Cardene drip. Placed on hydralazine 10 mg IV every [address] patient on amlodipine 10 mg once daily. Since potential cardiac history metoprolol Lopressor 50 mg twice daily. Patient's blood pressure significantly improved with this regime. Transfer to regular for follow. Aggressive blood pressure control. Stressed compliance. (6) NSTEMI (non-ST elevated myocardial infarction) Current Visit: Yes Status: Acute Plan to address problem: Again most likely secondary to renal insufficiency. But we are treating her as if patient had potential non-Q wave [place] patient taken beta-danika unable to anticoagulate secondary to active bleeding. We will also add statin as well. Further cardiac testing via cardiology. (7) Noncompliance with medication regimen Current Visit: Yes Status: Acute Plan to address problem: Patient stressed the importance of medication and treatment of her disease state. Patient understands he is a bit tearful secondary to her declining health. (8) Obesity (BMI 30.0-34.9) Current Visit: Yes Status: Acute Plan to address problem: Diet and exercise as lifestyle modification. Subjective Date of service: 09/16/20 Principal diagnosis: Hypertensive emergency vaginal bleeding Interval history: 45-year-old -[place] female with history of uncontrolled hypertension who presents to ED with cc of prolonged vaginal bleeding x2 weeks. Patient states she had a heavy menstrual cycle which progressed to worsening bleeding with multiple large clots. Patient admits to history of menorrhagia but denies prolonged vaginal bleeding. Additionally she complains of generalized weakness, dyspnea on exertion, fatigue and palpitations. Patient has history of hypertension but admits to being off medication for the past year. While in the ED patient blood pressure was 250/140 and she was noted to be in hypertensive urgency, subsequently started on heparin drip. . Denies chest pain fever, chills, sore throat, hematuria, hematochezia, abdominal pain, oliguria, recent sick contacts 09/16--patient hemodynamically stable. No evidence of stroke. Minimal headache. Will wean patient from Cardene drip today place patient on p.o. medications clonidine 0.1 mg 3 times daily we will also add amlodipine and metoprolol 50 twice daily. Patient's blood pressure was much better controlled able to discontinue Cardene drip and sent to telemetry floor. Objective - Constitutional Vitals: Vital Signs - 12hr 09/16/20 09/16/20 09/16/20 03:15 03:30 03:45 Temperature Pulse Rate 110 H 113 H 112 H Respiratory 24 12 13 Rate Blood Pressure 176/108 148/87 146/85 Blood Pressure [Right] O2 Sat by Pulse 97 97 95 Oximetry 09/16/20 09/16/20 09/16/20 04:00 04:15 04:30 Temperature Pulse Rate 112 H 118 H 115 H Respiratory 15 11 L 14 Rate Blood Pressure 141/80 145/83 150/86 Blood Pressure [Right] O2 Sat by Pulse 96 93 94 Oximetry 09/16/20 09/16/20 09/16/20 04:45 05:00 05:15 Temperature Pulse Rate 113 H 116 H 120 H Respiratory 19 21 16 Rate Blood Pressure 152/96 142/88 149/91 Blood Pressure [Right] O2 Sat by Pulse 96 98 Oximetry 09/16/20 09/16/20 09/16/20 05:30 05:45 06:00 Temperature Pulse Rate 114 H 117 H 115 H Respiratory 20 15 18 Rate Blood Pressure 145/89 149/90 140/89 Blood Pressure [Right] O2 Sat by Pulse 99 98 97 Oximetry 09/16/20 09/16/20 09/16/20 06:15 06:30 06:45 Temperature Pulse Rate 114 H 109 H 109 H Respiratory 25 H 26 H 23 Rate Blood Pressure 158/101 169/97 176/104 Blood Pressure [Right] O2 Sat by Pulse 96 96 98 Oximetry 09/16/20 09/16/20 09/16/20 07:00 07:15 07:29 Temperature 98.3 F Pulse Rate 102 H 99 H Respiratory 21 20 Rate Blood Pressure 167/104 184/103 Blood Pressure [Right] O2 Sat by Pulse 97 98 Oximetry 09/16/20 09/16/20 09/16/20 07:30 07:37 07:46 Temperature Pulse Rate 110 H 99 H Respiratory 25 H 17 15 Rate Blood Pressure 187/109 203/109 Blood Pressure [Right] O2 Sat by Pulse 100 100 Oximetry 09/16/20 09/16/20 09/16/20 08:00 08:16 08:30 Temperature Pulse Rate 100 H 96 H 96 H Respiratory 30 H 18 20 Rate Blood Pressure 196/112 196/112 180/106 Blood Pressure [Right] O2 Sat by Pulse 96 97 98 Oximetry 09/16/20 09/16/20 09/16/20 08:46 09:00 09:16 Temperature Pulse Rate 103 H 101 H Respiratory 12 22 Rate Blood Pressure 180/106 201/119 201/119 Blood Pressure [Right] O2 Sat by Pulse 99 99 97 Oximetry 09/16/20 09/16/20 09/16/20 09:30 09:46 09:47 Temperature Pulse Rate 101 H 98 H 94 H Respiratory 12 14 Rate Blood Pressure 200/118 200/118 180/106 Blood Pressure [Right] O2 Sat by Pulse 98 99 Oximetry 09/16/20 09/16/20 09/16/20 09:48 09:57 10:00 Temperature Pulse Rate 93 H 95 H 99 H Respiratory 22 Rate Blood Pressure 180/106 198/111 Blood Pressure [Right] O2 Sat by Pulse 100 Oximetry 09/16/20 09/16/20 09/16/20 10:16 10:30 10:46 Temperature Pulse Rate 105 H 104 H 97 H Respiratory 24 15 19 Rate Blood Pressure 198/111 197/109 197/109 Blood Pressure [Right] O2 Sat by Pulse 100 100 100 Oximetry 09/16/20 09/16/20 09/16/20 11:00 11:16 11:30 Temperature Pulse Rate 85 81 75 Respiratory 20 18 14 Rate Blood Pressure 189/120 189/120 170/103 Blood Pressure [Right] O2 Sat by Pulse 99 99 99 Oximetry 09/16/20 09/16/20 09/16/20 11:46 12:00 12:16 Temperature Pulse Rate 84 75 77 Respiratory 18 14 16 Rate Blood Pressure 170/103 174/115 174/115 Blood Pressure [Right] O2 Sat by Pulse 100 98 100 Oximetry 09/16/20 09/16/20 09/16/20 12:30 12:46 13:00 Temperature Pulse Rate 84 83 Respiratory 20 20 23 Rate Blood Pressure 158/108 158/108 141/92 Blood Pressure [Right] O2 Sat by Pulse 98 99 98 Oximetry 09/16/20 09/16/20 09/16/20 13:16 13:18 13:36 Temperature 98.3 F Pulse Rate 88 95 H Respiratory 16 17 Rate Blood Pressure 141/92 145/108 Blood Pressure 141/92 [Right] O2 Sat by Pulse 96 99 Oximetry General appearance: Present: no acute distress, well-nourished - EENT Eyes: PERRL, EOM intact ENT: hearing intact, clear oral mucosa Ears: bilateral: normal - Neck Neck: supple, normal ROM - Respiratory Respiratory effort: normal Respiratory: bilateral: CTA - Breasts Breasts: normal - Cardiovascular Rhythm: regular Heart Sounds: Present: S1 & S2. Absent: gallop, rub Extremities: pulses intact, No edema, normal color, Full ROM - Gastrointestinal General gastrointestinal: Present: soft, non-tender, non-distended, normal bowel sounds - Genitourinary Female genitourinary: normal - Integumentary Integumentary: clear, warm, dry - Musculoskeletal Musculoskeletal: 1, strength equal bilaterally - Neurologic Neurologic: moves all extremities - Psychiatric Psychiatric: memory intact, appropriate mood/affect, intact judgment & insight - Labs CBC & Chem 7: 09/15/20 17:17 09/15/20 17:17 Labs: Abnormal lab results 09/15/20 09/15/20 09/15/20 Range/Units 17:17 17:17 17:17 RBC 2.62 L (3.65-5.03) M/mm3 Hgb 6.2 L (10.1-14.3) gm/dl Hct 19.7 L* (30.3-42.9) % MCV 75 L (79-97) fl MCH 24 L (28-32) pg RDW 19.4 H (13.2-15.2) % Plt Count 111 L (140-440) K/mm3 Monocytes % (Manual) 11.0 H (0.0-7.3) % Eosinophils % (Manual) 5.0 H (0.0-4.3) % Monocytes # (Manual) 1.0 H (0.0-0.8) K/mm3 Eosinophils # (Manual) 0.5 H (0.0-0.4) K/mm3 Potassium 3.4 L (3.6-5.0) mmol/L Chloride 96.4 L (98-107) mmol/L Carbon Dioxide 32 H (22-30) mmol/L BUN 49 H (7-17) mg/dL Creatinine 5.2 H (0.6-1.2) mg/dL Glucose 114 H (65-100) mg/dL Troponin T (0.00-0.029) ng/mL Albumin 3.7 L (3.9-5) g/dL Crossmatch See Detail 09/15/20 09/15/20 09/15/20 Range/Units 17:17 20:19 23:59 RBC (3.65-5.03) M/mm3 Hgb (10.1-14.3) gm/dl Hct (30.3-42.9) % MCV (79-97) fl MCH (28-32) pg RDW (13.2-15.2) % Plt Count (140-440) K/mm3 Monocytes % (Manual) (0.0-7.3) % Eosinophils % (Manual) (0.0-4.3) % Monocytes # (Manual) (0.0-0.8) K/mm3 Eosinophils # (Manual) (0.0-0.4) K/mm3 Potassium (3.6-5.0) mmol/L Chloride (98-107) mmol/L Carbon Dioxide (22-30) mmol/L BUN (7-17) mg/dL Creatinine (0.6-1.2) mg/dL Glucose (65-100) mg/dL Troponin T 0.092 H 0.090 H 0.149 H* D (0.00-0.029) ng/mL Albumin (3.9-5) g/dL Crossmatch 09/16/20 Range/Units 07:08 RBC (3.65-5.03) M/mm3 Hgb (10.1-14.3) gm/dl Hct (30.3-42.9) % MCV (79-97) fl MCH (28-32) pg RDW (13.2-15.2) % Plt Count (140-440) K/mm3 Monocytes % (Manual) (0.0-7.3) % Eosinophils % (Manual) (0.0-4.3) % Monocytes # (Manual) (0.0-0.8) K/mm3 Eosinophils # (Manual) (0.0-0.4) K/mm3 Potassium (3.6-5.0) mmol/L Chloride (98-107) mmol/L Carbon Dioxide (22-30) mmol/L BUN (7-17) mg/dL Creatinine (0.6-1.2) mg/dL Glucose (65-100) mg/dL Troponin T 0.262 H* D (0.00-0.029) ng/mL Albumin (3.9-5) g/dL Crossmatch HEART Score - HEART Score Troponin: Troponin T 0.262 ng/mL (0.00-0.029) H* D 09/16/20 07:08
[2020-09-17] MEDS: hydrALAZINE 25 MG TAB PO SCH ×3 (05:29→21:25)
[2020-09-17] MEDS: ACETAMINOPHEN 325 MG TAB PO PRN (05:30)
[2020-09-17] MEDS: cloNIDine 0.1 MG TAB PO SCH ×3 (05:30→21:25)
[2020-09-17 08:36] LABS: Hematocrit 22.7 % (30.3-42.9); Hemoglobin 7.4 gm/dl (10.1-14.3); Mean Corpuscular HGB Conc 32 % (30-34); Mean Corpuscular Volume 77 fl (79-97); Platelet Count 127 K/mm3 (140-440); Red Blood Count 2.97 M/mm3 (3.65-5.03)
[2020-09-17 08:58] LABS: Calcium 8.9 mg/dL (8.4-10.2)
[2020-09-17] MEDS: amLODIPine 10 MG TAB PO SCH (09:21)
[2020-09-17] MEDS: DOCUSATE SODIUM 100 MG CAP PO SCH ×2 (09:21→21:24)
[2020-09-17] MEDS: METOPROLOL TARTRATE 50 MG TAB PO SCH ×2 (09:21→21:25)
--- NOTE | 2020-09-17 09:35 | Progress Note ---
Assessment and Plan Cont to optimize anti-hypertensive regimen. Elevated Vignesh appear c/w NSTEMI type II in setting of severe anemia, uncontrolled HTN, ARF, etc. Can consider stress testing as OP once medically stabilized. Await echo. The patient has been seen in conjunction with Dr. Monahan who agrees with the assessment and plan of care. - Patient Problems (1) Uncontrolled hypertension Current Visit: Yes Status: Acute (2) Menorrhagia Current Visit: Yes Status: Acute (3) Anemia Current Visit: Yes Status: Acute (4) Thrombocytopenia Current Visit: Yes Status: Acute (5) Acute renal failure Current Visit: Yes Status: Acute (6) NSTEMI (non-ST elevated myocardial infarction) Current Visit: Yes Status: Acute Plan to address problem: suspect type II Subjective Date of service: 09/17/20 Principal diagnosis: Hypertensive emergency vaginal bleeding Interval history: pt resting in bed, feeling better today, BPs improving. tele reviewed - in SR HR 80s. Objective Last Vital Signs Temp 98.4 F 09/17/20 08:12 Pulse 88 09/17/20 09:21 Resp 18 09/17/20 08:12 BP 151/74 09/17/20 09:21 Pulse Ox 100 09/17/20 08:12 - Physical Examination General: No Apparent Distress HEENT: Positive: PERRL Neck: Positive: neck supple, trachea midline Cardiac: Positive: Reg Rate and Rhythm, S1/S2 Lungs: Positive: Decreased Breath Sounds Neuro: Positive: Grossly Intact Abdomen: Negative: Tender Musculoskeletal: No Pain Extremities: Absent: edema - Labs and Meds CBC 09/17/20 Range/Units 07:46 WBC 8.4 (4.5-11.0) K/mm3 RBC 2.97 L (3.65-5.03) M/mm3 Hgb 7.4 L (10.1-14.3) gm/dl Hct 22.7 L (30.3-42.9) % Plt Count 127 L (140-440) K/mm3 Comprehensive Metabolic Panel 09/17/20 Range/Units 07:46 Sodium 139 (137-145) mmol/L Potassium 3.8 (3.6-5.0) mmol/L Chloride 97.8 L (98-107) mmol/L Carbon Dioxide 29 (22-30) mmol/L BUN 49 H (7-17) mg/dL Creatinine 5.7 H (0.6-1.2) mg/dL Glucose 81 (65-100) mg/dL Calcium 8.9 (8.4-10.2) mg/dL - Imaging and Cardiology EKG: report reviewed, image reviewed Echo: pending - Telemetry EKG Rhythm: Sinus Rhythm - EKG Sinus rhythms and dysrhythmias: sinus rhythm
--- NOTE | 2020-09-17 12:06 | Progress Note ---
Assessment and Plan Impression: * TAMARA on likely ckd of unknown stage--likely ckd 5 * Anemia of ABL POA * Htn emergency * NSTEMI * Vaginal bleeding Plan: * follow up renal us with pvr noted, no hydro, medical renal disease * 24hr urine crcl/protein pending * control bp-cardene gtt as needed * daily lytes and strict i/os * avoid nephrotoxins * no emergent indication for senior formulation scientist today * likely tamara on adv ckd due to uncontrolled HTN * prbcs per primary team * likely adv ckd, no indication to start senior formulation scientist now, sanjuanita with recent NSTEMI * follow up lytes, cr noted, bp improved Subjective Date of service: 09/17/20 Principal diagnosis: Hypertensive emergency vaginal bleeding Interval history: resting well Objective - Exam Narrative Exam: General: No acute distress Head: Atraumatic Eyes: normal appearance ENT: Moist mucous membranes Neck: Normal appearance, no midline tenderness Chest: Clear to auscultation bilaterally CV: Mild tachycardia, regular rhythm Abdomen: Soft, normal bowel sounds, nontender, nondistended, no rebound or guarding Back: Normal inspection Extremity: Normal inspection, full range of motion, no calf tenderness or leg edema Neuro: Alert O x 3, no facial asymmetry, speech clear, no gross motor sensory deficit Psych: Appropriate behavior Skin: No rash - Vital Signs Vital signs: Vital Signs - 12hr 09/17/20 09/17/20 09/17/20 00:36 04:08 08:12 Temperature 98.6 F 98.5 F 98.4 F Pulse Rate 71 78 79 Pulse Rate [ Right Radial] Respiratory 18 17 18 Rate Blood Pressure 137/89 161/98 169/95 O2 Sat by Pulse 98 99 100 Oximetry 09/17/20 09/17/20 09:21 10:00 Temperature Pulse Rate 88 Pulse Rate [ 77 Right Radial] Respiratory Rate Blood Pressure 151/74 O2 Sat by Pulse Oximetry - Lab 09/17/20 07:46 09/17/20 07:46 Most recent lab results Calcium 8.9 mg/dL (8.4-10.2) 09/17/20 07:46 Medications & Allergies - Medications Allergies/Adverse Reactions: Allergies No Known Allergies Allergy (Unverified 09/15/20 16:52) Active Medications: Generic Name Dose Route Start Last Admin Trade Name Freq PRN Reason Stop Dose Admin Acetaminophen 650 mg 09/15/20 21:00 09/17/20 05:30 Acetaminophen 325 Mg Tab PO 650 mg Q4H PRN Administration Pain MILD(1-3)/Fever >100.5/ESPARZA Alprazolam 0.5 mg 09/15/20 21:37 09/16/20 03:18 Alprazolam 0.5 Mg Tab PO 0.5 mg Q8H PRN Administration Anxiety Amlodipine Besylate 10 mg 09/16/20 10:00 09/17/20 09:21 Amlodipine 10 Mg Tab PO 10 mg QDAY HANNAH Administration Clonidine HCl 0.1 mg 09/16/20 10:00 09/17/20 05:30 Clonidine 0.1 Mg Tab PO 0.1 mg Q8HR HANNAH Administration Docusate Sodium 100 mg 09/15/20 22:00 09/17/20 09:21 Docusate Sodium 100 Mg Cap PO 100 mg BID HANNAH Administration Hydralazine HCl 10 mg 09/16/20 09:17 09/16/20 09:48 Hydralazine 20 Mg/1 Ml Inj IV 10 mg Q4HR PRN Administration Hypertension Hydralazine HCl 50 mg 09/16/20 10:00 09/17/20 05:29 Hydralazine 25 Mg Tab PO 50 mg Q8HR HANNAH Administration Metoprolol Tartrate 50 mg 09/16/20 10:00 09/17/20 09:21 Metoprolol Tartrate 50 Mg Tab PO 50 mg BID HANNAH Administration Ondansetron HCl 4 mg 09/15/20 21:00 Ondansetron 4 Mg/2 Ml Inj IV Q8H PRN Nausea And Vomiting Oxycodone/Acetaminophen 1 tab 09/15/20 21:36 09/16/20 18:29 Oxycodone /Acetaminophen 5-325mg Tab PO 1 tab Q4H PRN Administration Pain, Moderate (4-6) Sodium Chloride 10 ml 09/15/20 22:00 09/17/20 09:23 Sodium Chloride 0.9% 10 Ml Flush Syringe IV 10 ml BID HANNAH Administration Sodium Chloride 10 ml 09/15/20 21:00 Sodium Chloride 0.9% 10 Ml Flush Syringe IV PRN PRN LINE FLUSH
[2020-09-17 12:16] LABS: Total Cells Counted 100
[2020-09-17 12:17] LABS: Hypochromasia 2+; Schistocytes 1+
[2020-09-17 12:18] LABS: Platelet Estimate Consistent w Auto; Target Cells Few
--- NOTE | 2020-09-17 13:15 | Progress Note ---
Assessment and Plan - Patient Problems (1) Acute renal failure Current Visit: Yes Status: Acute Plan to address problem: Patient with acute renal failure. Most likely has significant chronic kidney disease from prolonged uncontrolled hypertension. There has been no improvement in renal function thus far. No indication for hemodialysis today. Spoke with Dr. Echavarria currently under work-up urine protein electrolytes renal ultrasound. Avoid nephrotoxic agents at this time. Avoid JAYDE at this time as well. (2) Anemia Current Visit: Yes Status: Acute Plan to address problem: Anemia multifactorial secondary to prolonged vaginal bleeding. As well as anemia of chronic disease from underlying renal insufficiency Packed red blood cells have already been transfused. Follow-up transfusion hemoglobin 7.4 and 22. (3) Elevated troponin Current Visit: Yes Status: Acute Plan to address problem: Most likely secondary to acute kidney injury. Patient is not having any chest pain no shortness of breath no different exertion. Patient did have elevation in troponin. Will treat as non-Q wave [place]. Unable to effectively anticoagulate at this time secondary to active bleeding. Will add beta-danika. We will also add statin as well to patient's regime. Further risk factor stratify with diet education. Patient may be a candidate for further cardiac testing prior to discharge. Patient stable enough now to transfer to telemetry floor. (4) Excessive and frequent menstruation with irregular cycle Current Visit: Yes Status: Acute Plan to address problem: Patient will require hysterectomy. Plans to be done on outpatient basis. There was discussion whether to take her control out during this hospitalization. (5) Hypertensive emergency Current Visit: Yes Status: Acute Plan to address problem: Placed on hydralazine 10 mg IV every [address] patient on amlodipine 10 mg once daily. Since potential cardiac history metoprolol Lopre ssor 50 mg twice daily. Patient's blood pressure significantly improved with this regime. Transfer to regular for follow. Aggressive blood pressure control. Stressed compliance. (6) NSTEMI (non-ST elevated myocardial infarction) Current Visit: Yes Status: Acute Plan to address problem: Again most likely secondary to renal insufficiency. But we are treating her as if patient had potential non-Q wave [place] patient taken beta-danika unable to anticoagulate secondary to active bleeding. We will also add statin as well. Further cardiac testing via cardiology. (7) Noncompliance with medication regimen Current Visit: Yes Status: Acute Plan to address problem: Patient stressed the importance of medication and treatment of her disease state. Patient understands he is a bit tearful secondary to her declining health. (8) Obesity (BMI 30.0-34.9) Current Visit: Yes Status: Acute Plan to address problem: Diet and exercise as lifestyle modification. Subjective Date of service: 09/17/20 Principal diagnosis: Hypertensive emergency vaginal bleeding Interval history: 45-year-old -[place] female with history of uncontrolled hypertension who presents to ED with cc of prolonged vaginal bleeding x2 weeks. Patient states she had a heavy menstrual cycle which progressed to worsening bleeding with multiple large clots. Patient admits to history of menorrhagia but denies prolonged vaginal bleeding. Additionally she complains of generalized weakness, dyspnea on exertion, fatigue and palpitations. Patient has history of hypertension but admits to being off medication for the past year. While in the ED patient blood pressure was 250/140 and she was noted to be in hypertensive urgency, subsequently started on heparin drip. . Denies chest pain fever, chills, sore throat, hematuria, hematochezia, abdominal pain, oliguria, recent sick contacts 09/16--patient hemodynamically stable. No evidence of stroke. Minimal headache. Will wean patient from Cardene drip today place patient on p.o. medi cations clonidine 0.1 mg 3 times daily we will also add amlodipine and metoprolol 50 twice daily. Patient's blood pressure was much better controlled able to discontinue Cardene drip and sent to telemetry floor. 09/17--bleeding has improved. Remains hemodynamically stable. Blood pressure much better controlled 151/74. We will continue to dose titrate as indicated. Weaned Cardene drip. Complete. Hospital course uncomplicated overnight. Objective - Constitutional Vitals: Vital Signs - 12hr 09/17/20 09/17/20 09/17/20 04:08 08:12 09:21 Temperature 98.5 F 98.4 F Pulse Rate 78 79 88 Pulse Rate [ Right Radial] Respiratory 17 18 Rate Blood Pressure 161/98 169/95 151/74 O2 Sat by Pulse 99 100 Oximetry 09/17/20 10:00 Temperature Pulse Rate Pulse Rate [ 77 Right Radial] Respiratory Rate Blood Pressure O2 Sat by Pulse Oximetry General appearance: Present: no acute distress, well-nourished - EENT Eyes: PERRL, EOM intact ENT: hearing intact, clear oral mucosa Ears: bilateral: normal - Neck Neck: supple, normal ROM - Respiratory Respiratory effort: normal Respiratory: bilateral: CTA - Breasts Breasts: normal - Cardiovascular Rhythm: regular Heart Sounds: Present: S1 & S2. Absent: gallop, rub Extremities: pulses intact, No edema, normal color, Full ROM - Gastrointestinal General gastrointestinal: Present: soft, non-tender, non-distended, normal bowel sounds - Genitourinary Female genitourinary: normal - Integumentary Integumentary: clear, warm, dry - Musculoskeletal Musculoskeletal: 1, strength equal bilaterally - Neurologic Neurologic: moves all extremities - Psychiatric Psychiatric: memory intact, appropriate mood/affect, intact judgment & insight - Labs CBC & Chem 7: 09/17/20 07:46 09/17/20 07:46 Labs: Abnormal lab results 09/17/20 09/17/20 Range/Units 07:46 07:46 RBC 2.97 L (3.65-5.03) M/mm3 Hgb 7.4 L (10.1-14.3) gm/dl Hct 22.7 L (30.3-42.9) % MCV 77 L (79-97) fl MCH 25 L (28-32) pg RDW 19.0 H (13.2-15.2) % Plt Count 127 L (140-440) K/mm3 Seg Neuts % (Manual) 79.0 H (40.0-70.0) % Lymphocytes % (Manual) 13.0 L (13.4-35.0) % Eosinophils % (Manual) 5.0 H (0.0-4.3) % Lymphocytes # (Manual) 1.1 L (1.2-5.4) K/mm3 Chloride 97.8 L (98-107) mmol/L BUN 49 H (7-17) mg/dL Creatinine 5.7 H (0.6-1.2) mg/dL Troponin T 0.285 H* (0.00-0.029) ng/mL HEART Score - HEART Score Troponin: Troponin T 0.285 ng/mL (0.00-0.029) H* 09/17/20 07:46
[2020-09-17] MEDS: oxyCODONE /ACETAMINOPHEN 5-325MG TAB PO PRN (15:17)
[2020-09-18] MEDS: oxyCODONE /ACETAMINOPHEN 5-325MG TAB PO PRN ×2 (01:17→15:44)
[2020-09-18] MEDS: cloNIDine 0.1 MG TAB PO SCH ×3 (05:49→22:36)
[2020-09-18] MEDS: hydrALAZINE 25 MG TAB PO SCH ×3 (05:49→22:38)
[2020-09-18 06:46] LABS: Basophils # (Auto) 0.1 K/mm3 (0.0-0.1); Basophils % (Auto) 0.8 % (0.0-1.8); Eosinophils # (Auto) 0.5 K/mm3 (0.0-0.4); Eosinophils % (Auto) 6.8 % (0.0-4.3); Hematocrit 21.8 % (30.3-42.9); Lymphocytes # (Auto) 1.7 K/mm3 (1.2-5.4); Lymphocytes % (Auto) 25.3 % (13.4-35.0); Mean Corpuscular HGB Conc 32 % (30-34); Mean Corpuscular Volume 76 fl (79-97); Monocytes # (Auto) 0.7 K/mm3 (0.0-0.8); Monocytes % (Auto) 10.3 % (0.0-7.3); Platelet Count 138 K/mm3 (140-440); Red Blood Count 2.85 M/mm3 (3.65-5.03); Red Cell Distribution Width 19.4 % (13.2-15.2)
[2020-09-18 06:52] LABS: Calcium 8.6 mg/dL (8.4-10.2)
--- NOTE | 2020-09-18 08:27 | Progress Note ---
Assessment and Plan Impression: * TAMARA on likely ckd of unknown stage--likely ckd 5 * Anemia of ABL POA * Htn emergency * NSTEMI * Vaginal bleeding Plan: * follow up renal us with pvr noted, no hydro, medical renal disease * 24hr urine crcl/protein pending, still not started this am * control bp-amended meds * daily lytes and strict i/os * avoid nephrotoxins * no emergent indication for machine stapler today * likely tamara on adv ckd due to uncontrolled HTN * prbcs per primary team * likely adv ckd, no indication to start machine stapler now, sanjuanita with recent NSTEMI * follow up lytes, cr noted, bp improved * cr is relatively stable. will likely need HEAD TURBINE OPERATOR soon, but not emergent Subjective Date of service: 09/18/20 Principal diagnosis: Hypertensive emergency vaginal bleeding Interval history: resting well Objective - Vital Signs Vital signs: Vital Signs - 12hr 09/18/20 09/18/20 00:09 05:37 Temperature 98.2 F 98.1 F Pulse Rate 66 69 Respiratory 16 16 Rate Blood Pressure 143/84 141/90 O2 Sat by Pulse 100 99 Oximetry - Lab 09/18/20 06:19 09/18/20 06:19 Most recent lab results Calcium 8.6 mg/dL (8.4-10.2) 09/18/20 06:19 Medications & Allergies - Medications Allergies/Adverse Reactions: Allergies No Known Allergies Allergy (Unverified 09/15/20 16:52) Home Medications: Home Medications Medication Instructions Recorded Confirmed Last Taken Type No Known Home Medications [No 09/17/20 09/17/20 Unknown History Reported Home Medications] Active Medications: Generic Name Dose Route Start Last Admin Trade Name Deepakq PRN Reason Stop Dose Admin Acetaminophen 650 mg 09/15/20 21:00 09/17/20 05:30 Acetaminophen 325 Mg Tab PO 650 mg Q4H PRN Administration Pain MILD(1-3)/Fever >100.5/ESPARZA Alprazolam 0.5 mg 09/15/20 21:37 09/16/20 03:18 Alprazolam 0.5 Mg Tab PO 0.5 mg Q8H PRN Administration Anxiety Amlodipine Besylate 10 mg 09/16/20 10:00 09/17/20 09:21 Amlodipine 10 Mg Tab PO 10 mg QDAY HANNAH Administration Clonidine HCl 0.1 mg 09/16/20 10:00 09/18/20 05:49 Clonidine 0.1 Mg Tab PO 0.1 mg Q8HR HANNAH Administration Docusate Sodium 100 mg 09/15/20 22:00 09/17/20 21:24 Docusate Sodium 100 Mg Cap PO 100 mg BID HANNAH Administration Hydralazine HCl 10 mg 09/16/20 09:17 09/16/20 09:48 Hydralazine 20 Mg/1 Ml Inj IV 10 mg Q4HR PRN Administration Hypertension Hydralazine HCl 50 mg 09/16/20 10:00 09/18/20 05:49 Hydralazine 25 Mg Tab PO 50 mg Q8HR HANNAH Administration Metoprolol Tartrate 50 mg 09/16/20 10:00 09/17/20 21:25 Metoprolol Tartrate 50 Mg Tab PO 50 mg BID HANNAH Administration Ondansetron HCl 4 mg 09/15/20 21:00 Ondansetron 4 Mg/2 Ml Inj IV Q8H PRN Nausea And Vomiting Oxycodone/Acetaminophen 1 tab 09/17/20 14:00 09/18/20 01:17 Oxycodone /Acetaminophen 5-325mg Tab PO 1 tab Q6H PRN Administration Pain, Moderate (4-6) Sodium Chloride 10 ml 09/15/20 22:00 09/17/20 21:25 Sodium Chloride 0.9% 10 Ml Flush Syringe IV 10 ml BID HANNAH Administration Sodium Chloride 10 ml 09/15/20 21:00 Sodium Chloride 0.9% 10 Ml Flush Syringe IV PRN PRN LINE FLUSH
--- NOTE | 2020-09-18 10:19 | Progress Note ---
Assessment and Plan - Patient Problems (1) Acute renal failure Current Visit: Yes Status: Acute Plan to address problem: Again most likely acute on chronic kidney disease. All questions explained to patient to her satisfaction about the liability her for renal function. Patient has been educated to maintain adequate control optimal control blood pressure avoid NSAIDs avoid salty diet. And follow-up with nephrology. Stable for discharge with follow-up with nephrology. Will discharge status post 24-hour creatinine clearance (2) Anemia Current Visit: Yes Status: Acute Plan to address problem: Anemia multifactorial secondary to prolonged vaginal bleeding. As well as anemia of chronic disease from underlying renal insufficiency Packed red blood cells have already been transfused. Follow-up transfusion hemoglobin 7.4 and 22. (3) Elevated troponin Current Visit: Yes Status: Acute Plan to address problem: Type II non-Q wave [place] secondary to acute renal failure and uncontrolled hypertension. Stress test as outpatient. (4) Excessive and frequent menstruation with irregular cycle Current Visit: Yes Status: Acute Plan to address problem: Patient will require hysterectomy. Plans to be done on outpatient basis. There was discussion whether to take her control out during this hospitalization. Will require hysterectomy upon discharge as outpatient. (5) Hypertensive emergency Current Visit: Yes Status: Acute Plan to address problem: Placed on hydralazine 10 mg IV every [address] patient on amlodipine 10 mg once daily. Since potential cardiac history metoprolol Lopressor 50 mg twice daily. Patient's blood pressure significantly improved with this regime. Transfer to regular for follow. Aggressive blood pressure control. Stressed compliance. (6) NSTEMI (non-ST elevated myocardial infarction) Current Visit: Yes Status: Acute Plan to address problem: Again most likely secondary to renal insufficiency. But we are treating her as if patient had potential non-Q wave [place] patient taken beta-danika unable to anticoagulate secondary to active bleeding. We will also add statin as well. Further cardiac testing via cardiology. (7) Noncompliance with medication regimen Current Visit: Yes Status: Acute Plan to address problem: Patient stressed the importance of medication and treatment of her disease state. Patient understands he is a bit tearful secondary to her declining health. (8) Obesity (BMI 30.0-34.9) Current Visit: Yes Status: Acute Plan to address problem: Diet and exercise as lifestyle modification. Subjective Date of service: 09/18/20 Principal diagnosis: Hypertensive emergency vaginal bleeding Interval history: 45-year-old -[place] female with history of uncontrolled hypertension who presents to ED with cc of prolonged vaginal bleeding x2 weeks. Patient states she had a heavy menstrual cycle which progressed to worsening bleeding with multiple large clots. Patient admits to history of menorrhagia but denies prolonged vaginal bleeding. Additionally she complains of generalized weakness, dyspnea on exertion, fatigue and palpitations. Patient has history of hypertension but admits to being off medication for the past year. While in the ED patient blood pressure was 250/140 and she was noted to be in hypertensive urgency, subsequently started on heparin drip. . Denies chest pain fever, chills, sore throat, hematuria, hematochezia, abdominal pain, oliguria, recent sick contacts 09/16--patient hemodynamically stable. No evidence of stroke. Minimal headache. Will wean patient from Cardene drip today place patient on p.o. medications clonidine 0.1 mg 3 times daily we will also add amlodipine and metoprolol 50 twice daily. Patient's blood pressure was much better controlled able to discontinue Cardene drip and sent to telemetry floor. 09/17--bleeding has improved. Remains hemodynamically stable. Blood pressure much better controlled 151/74. We will continue to dose titrate as indicated. Weaned Cardene drip. Complete. Hospital course uncomplicated overnight. 09/18 patient has had significant improvement over p.m. No bleeding. Blood pressure even much better controlled at 138-140/75. We will continue oral antihypertensives as we are doing now. Patient has 24-hour urine creatinine to be completed tomorrow at 11 AM. Patient will be able to discharge tomorrow at 11 AM. Objective - Constitutional Vitals: Vital Signs - 12hr 09/18/20 09/18/20 00:09 05:37 Temperature 98.2 F 98.1 F Pulse Rate 66 69 Respiratory 16 16 Rate Blood Pressure 143/84 141/90 O2 Sat by Pulse 100 99 Oximetry General appearance: Present: no acute distress, well-nourished - EENT Eyes: PERRL, EOM intact ENT: hearing intact, clear oral mucosa Ears: bilateral: normal - Neck Neck: supple, normal ROM - Respiratory Respiratory effort: normal Respiratory: bilateral: CTA - Breasts Breasts: normal - Cardiovascular Rhythm: regular Heart Sounds: Present: S1 & S2. Absent: gallop, rub Extremities: pulses intact, No edema, normal color, Full ROM - Gastrointestinal General gastrointestinal: Present: soft, non-tender, non-distended, normal bowel sounds - Genitourinary Female genitourinary: normal - Integumentary Integumentary: clear, warm, dry - Musculoskeletal Musculoskeletal: 1, strength equal bilaterally - Neurologic Neurologic: moves all extremities - Psychiatric Psychiatric: memory intact, appropriate mood/affect, intact judgment & insight - Labs CBC & Chem 7: 09/18/20 06:19 09/18/20 06:19 Labs: Abnormal lab results 09/17/20 09/18/20 09/18/20 Range/Units 07:46 06:19 06:19 RBC 2.85 L (3.65-5.03) M/mm3 Hgb 7.0 L (10.1-14.3) gm/dl Hct 21.8 L (30.3-42.9) % MCV 76 L (79-97) fl MCH 24 L (28-32) pg RDW 19.4 H (13.2-15.2) % Plt Count 138 L (140-440) K/mm3 [place] % (Auto) 10.3 H (0.0-7.3) % Eos % (Auto) 6.8 H (0.0-4.3) % Eos # (Auto) 0.5 H (0.0-0.4) K/mm3 Seg Neuts % (Manual) 79.0 H (40.0-70.0) % Lymphocytes % (Manual) 13.0 L (13.4-35.0) % Eosinophils % (Manual) 5.0 H (0.0-4.3) % Lymphocytes # (Manual) 1.1 L (1.2-5.4) K/mm3 Sodium 136 L (137-145) mmol/L Chloride 97.0 L (98-107) mmol/L BUN 50 H (7-17) mg/dL Creatinine 5.9 H (0.6-1.2) mg/dL Glucose 141 H (65-100) mg/dL POC Glucose (70-105) mg/dL 09/18/20 Range/Units 07:55 RBC (3.65-5.03) M/mm3 Hgb (10.1-14.3) gm/dl Hct (30.3-42.9) % MCV (79-97) fl MCH (28-32) pg RDW (13.2-15.2) % Plt Count (140-440) K/mm3 [place] % (Auto) (0.0-7.3) % Eos % (Auto) (0.0-4.3) % Eos # (Auto) (0.0-0.4) K/mm3 Seg Neuts % (Manual) (40.0-70.0) % Lymphocytes % (Manual) (13.4-35.0) % Eosinophils % (Manual) (0.0-4.3) % Lymphocytes # (Manual) (1.2-5.4) K/mm3 Sodium (137-145) mmol/L Chloride (98-107) mmol/L BUN (7-17) mg/dL Creatinine (0.6-1.2) mg/dL Glucose (65-100) mg/dL POC Glucose 120 H (70-105) mg/dL HEART Score - HEART Score Troponin: Troponin T 0.285 ng/mL (0.00-0.029) H* 09/17/20 07:46
[2020-09-18] MEDS: amLODIPine 10 MG TAB PO SCH (11:14)
[2020-09-18] MEDS: METOPROLOL TARTRATE 50 MG TAB PO SCH ×2 (11:14→22:37)
[2020-09-18] MEDS: DOCUSATE SODIUM 100 MG CAP PO SCH ×2 (11:14→22:37)
--- NOTE | 2020-09-18 11:42 | Progress Note ---
Assessment and Plan Pt is clinically improved (no cardiac sxs) BP control is better Elevated Vignesh appear c/w NSTEMI type II in setting of severe anemia, uncontrolled HTN, ARF, etc. Can consider stress testing as OP once medically stabilized. Not on asa due to sig anemia/acute vaginal bleeding Await echo. - Patient Problems (1) Acute renal failure Current Visit: Yes Status: Acute (2) Anemia Current Visit: Yes Status: Acute (3) Elevated troponin Current Visit: Yes Status: Acute (4) Fibroid Current Visit: Yes Status: Acute (5) Hypertensive emergency Current Visit: Yes Status: Acute (6) Menorrhagia Current Visit: Yes Status: Acute (7) NSTEMI (non-ST elevated myocardial infarction) Current Visit: Yes Status: Acute (8) Noncompliance with medication regimen Current Visit: Yes Status: Acute (9) Obesity (BMI 30.0-34.9) Current Visit: Yes Status: Acute (10) Ovarian cyst, left Current Visit: Yes Status: Acute (11) Renal insufficiency Current Visit: Yes Status: Acute Subjective Principal diagnosis: Hypertensive emergency vaginal bleeding Interval history: no complaints no cp/sob Objective Vital Signs Temp Pulse Pulse Resp BP BP Pulse Ox 09/18/20 05:37 98.1 F 69 16 141/90 99 09/18/20 00:09 98.2 F 66 16 143/84 100 09/17/20 18:55 98.6 F 74 16 141/84 99 09/17/20 16:17 16 09/17/20 16:00 77 99 09/17/20 15:48 98.0 F 79 18 147/85 99 09/17/20 15:17 16 09/17/20 13:21 78 135/72 09/17/20 13:20 98.1 F 78 17 135/72 99 - Physical Examination General: No Apparent Distress HEENT: Positive: PERRL Neck: Positive: neck supple, trachea midline Neuro: Positive: Grossly Intact Abdomen: Negative: Tender Musculoskeletal: No Pain Extremities: Absent: edema - Labs and Meds CBC 09/18/20 Range/Units 06:19 WBC 6.7 (4.5-11.0) K/mm3 RBC 2.85 L (3.65-5.03) M/mm3 Hgb 7.0 L (10.1-14.3) gm/dl Hct 21.8 L (30.3-42.9) % Plt Count 138 L (140-440) K/mm3 Lymph # (Auto) 1.7 (1.2-5.4) K/mm3 [place] # (Auto) 0.7 (0.0-0.8) K/mm3 Eos # (Auto) 0.5 H (0.0-0.4) K/mm3 Baso # (Auto) 0.1 (0.0-0.1) K/mm3 Comprehensive Metabolic Panel 09/18/20 Range/Units 06:19 Sodium 136 L (137-145) mmol/L Potassium 3.7 (3.6-5.0) mmol/L Chloride 97.0 L (98-107) mmol/L Carbon Dioxide 29 (22-30) mmol/L BUN 50 H (7-17) mg/dL Creatinine 5.9 H (0.6-1.2) mg/dL Glucose 141 H (65-100) mg/dL Calcium 8.6 (8.4-10.2) mg/dL - Imaging and Cardiology EKG: report reviewed, image reviewed Echo: pending - EKG Sinus rhythms and dysrhythmias: sinus rhythm
--- NOTE | 2020-09-19 07:42 | Progress Note ---
Assessment and Plan Impression: * TAMARA on likely ckd of unknown stage--likely ckd 5 * Anemia of ABL POA * Htn emergency * NSTEMI * Vaginal bleeding Plan: * follow up renal us with pvr noted, no hydro, medical renal disease * 24hr urine crcl/protein pending, still not started this am * control bp-amended meds * daily lytes and strict i/os * avoid nephrotoxins * no emergent indication for environmental test technician today * likely tamara on adv ckd due to uncontrolled HTN * prbcs per primary team * likely adv ckd, no indication to start environmental test technician now, sanjuanita with recent NSTEMI * follow up lytes, cr noted, bp improved * cr is relatively stable. will likely need PULP MACHINE OPERATOR soon, but not emergent * follow up iron studies, add epogen Subjective Date of service: 09/19/20 Principal diagnosis: Hypertensive emergency vaginal bleeding Interval history: resting well Objective - Exam Narrative Exam: General: No acute distress Head: Atraumatic Eyes: normal appearance ENT: Moist mucous membranes Neck: Normal appearance, no midline tenderness Chest: Clear to auscultation bilaterally CV: Mild tachycardia, regular rhythm Abdomen: Soft, normal bowel sounds, nontender, nondistended, no rebound or guarding Back: Normal inspection Extremity: Normal inspection, full range of motion, no calf tenderness or leg edema Neuro: Alert O x 3, no facial asymmetry, speech clear, no gross motor sensory deficit Psych: Appropriate behavior Skin: No rash - Vital Signs Vital signs: Vital Signs - 12hr 09/18/20 09/18/20 09/18/20 22:00 22:36 22:37 Temperature Pulse Rate 70 66 66 Respiratory Rate Blood Pressure 127/77 127/77 O2 Sat by Pulse Oximetry 09/18/20 09/19/20 09/19/20 22:38 00:32 05:13 Temperature 98.0 F 98.2 F Pulse Rate 66 59 L 64 Respiratory 16 16 Rate Blood Pressure 127/77 130/76 146/92 O2 Sat by Pulse 98 100 Oximetry - Lab 09/18/20 06:19 09/18/20 06:19 Most recent lab results Calcium 8.6 mg/dL (8.4-10.2) 09/18/20 06:19 Medications & Allergies - Medications Allergies/Adverse Reactions: Allergies No Known Allergies Allergy (Unverified 09/15/20 16:52) Home Medications: Home Medications Medication Instructions Recorded Confirmed Last Taken Type No Known Home Medications [No 09/17/20 09/17/20 Unknown History Reported Home Medications] Active Medications: Generic Name Dose Route Start Last Admin Trade Name Omega PRN Reason Stop Dose Admin Acetaminophen 650 mg 09/15/20 21:00 09/17/20 05:30 Acetaminophen 325 Mg Tab PO 650 mg Q4H PRN Administration Pain MILD(1-3)/Fever >100.5/ESPARZA Alprazolam 0.5 mg 09/15/20 21:37 09/16/20 03:18 Alprazolam 0.5 Mg Tab PO 0.5 mg Q8H PRN Administration Anxiety Amlodipine Besylate 10 mg 09/16/20 10:00 09/18/20 11:14 Amlodipine 10 Mg Tab PO 10 mg QDAY HANNAH Administration Clonidine HCl 0.1 mg 09/16/20 10:00 09/18/20 22:36 Clonidine 0.1 Mg Tab PO 0.1 mg Q8HR HANNAH Administration Docusate Sodium 100 mg 09/15/20 22:00 09/18/20 22:37 Docusate Sodium 100 Mg Cap PO 100 mg BID HANNAH Administration Hydralazine HCl 10 mg 09/16/20 09:17 09/16/20 09:48 Hydralazine 20 Mg/1 Ml Inj IV 10 mg Q4HR PRN Administration Hypertension Hydralazine HCl 50 mg 09/16/20 10:00 09/18/20 22:38 Hydralazine 25 Mg Tab PO 50 mg Q8HR HANNAH Administration Metoprolol Tartrate 50 mg 09/16/20 10:00 09/18/20 22:37 Metoprolol Tartrate 50 Mg Tab PO 50 mg BID HANNAH Administration Ondansetron HCl 4 mg 09/15/20 21:00 Ondansetron 4 Mg/2 Ml Inj IV Q8H PRN Nausea And Vomiting Oxycodone/Acetaminophen 1 tab 09/17/20 14:00 09/18/20 15:44 Oxycodone /Acetaminophen 5-325mg Tab PO 1 tab Q6H PRN Administration Pain, Moderate (4-6) Sodium Chloride 10 ml 09/15/20 22:00 09/18/20 22:40 Sodium Chloride 0.9% 10 Ml Flush Syringe IV 10 ml BID HANNAH Administration Sodium Chloride 10 ml 09/15/20 21:00 Sodium Chloride 0.9% 10 Ml Flush Syringe IV PRN PRN LINE FLUSH
[2020-09-19] MEDS: cloNIDine 0.1 MG TAB PO SCH (08:01)
[2020-09-19] MEDS: hydrALAZINE 25 MG TAB PO SCH ×2 (08:02→13:13)
[2020-09-19 08:22] LABS: Basophils % (Auto) 0.4 % (0.0-1.8); Eosinophils # (Auto) 0.3 K/mm3 (0.0-0.4); Eosinophils % (Auto) 5.1 % (0.0-4.3); Hematocrit 21.3 % (30.3-42.9); Hemoglobin 6.7 gm/dl (10.1-14.3); Lymphocytes # (Auto) 1.2 K/mm3 (1.2-5.4); Lymphocytes % (Auto) 22.5 % (13.4-35.0); Mean Corpuscular HGB Conc 31 % (30-34); Mean Corpuscular Volume 76 fl (79-97); Monocytes # (Auto) 0.6 K/mm3 (0.0-0.8); Monocytes % (Auto) 12.4 % (0.0-7.3); Platelet Count 151 K/mm3 (140-440); Red Blood Count 2.79 M/mm3 (3.65-5.03)
[2020-09-19 08:31] LABS: Calcium 8.5 mg/dL (8.4-10.2)
[2020-09-19 08:34] LABS: Iron 17 ug/dL (37-170); Total Iron Binding Capacity 325 mcg/dL (250-450)
[2020-09-19] MEDS ORDERED: SODIUM CHLORIDE 0.9% 500 ML 500 ML IV SCH (09:00)
--- NOTE | 2020-09-19 09:39 | Discharge Summary ---
Providers - Providers Date of Admission: 09/16/20 16:31 Attending physician: JOSE FIGUEROA MD 09/15/20 19:21 Consult to Physician [CONS] Urgent Comment: Dr. Pryor spoke with Dr. Montes @ 1917 Consulting Provider: MAGDALENA MONTES Physician Instructions: Reason For Exam: renal failure, ,htn emergency 09/15/20 19:23 Consult to Physician [CONS] Urgent Comment: Dr. Pryor spoke with Dr. Bowie @ 1922 Consulting Provider: BILL BOWIE Physician Instructions: Reason For Exam: elevated trop, htn emergency 09/15/20 19:41 Consult to Physician [CONS] Urgent Comment: Dr. Pryor spoke with Dr. Negron @ 1940 Consulting Provider: SHILO NEGRON Physician Instructions: Reason For Exam: anemia, heavy vaginal bleeding Primary care physician: MEDICAL RESEARCH TECH Hospitalization Condition: Stable Hospital course: (1) Acute renal failure Current Visit: Yes Status: Acute Plan to address problem: Again most likely acute on chronic kidney disease. All questions explained to patient to her satisfaction about the liability her for renal function. Patient has been educated to maintain adequate control optimal control blood pressure avoid NSAIDs avoid salty diet. And follow-up with nephrology. Stable for discharge with follow-up with nephrology. Will discharge status post 24-hour creatinine clearance (2) Anemia Current Visit: Yes Status: Acute Plan to address problem: Anemia multifactorial secondary to prolonged vaginal bleeding. As well as anemia of chronic disease from underlying renal insufficiency Packed red blood cells have already been transfused. Follow-up transfusion hemoglobin 7.4 and 22. (3) Elevated troponin Current Visit: Yes Status: Acute Plan to address problem: Type II non-Q wave [place] secondary to acute renal failure and uncontrolled hypertension. Stress test as outpatient. (4) Excessive and frequent menstruation with irregular cycle Current Visit: Yes Status: Acute Plan to address problem: Patient will require hysterectomy. Plans to be done on outpatient basis. There was discussion whether to take her control out during this hospitalization. Will require hysterectomy upon discharge as outpatient. (5) Hypertensive emergency Current Visit: Yes Status: Acute Plan to address problem: Placed on hydralazine 10 mg IV every [address] patient on amlodipine 10 mg once daily. Since potential cardiac history metoprolol Lopressor 50 mg twice daily. Patient's blood pressure significantly improved with this regime. Transfer to regular for follow. Aggressive blood pressure control. Stressed compliance. (6) NSTEMI (non-ST elevated myocardial infarction) Current Visit: Yes Status: Acute Plan to address problem: Again most likely secondary to renal insufficiency. But we are treating her as if patient had potential non-Q wave [place] patient taken beta-danika unable to anticoagulate secondary to active bleeding. We will also add statin as well. Further cardiac testing via cardiology. (7) Noncompliance with medication regimen Current Visit: Yes Status: Acute Plan to address problem: Patient stressed the importance of medication and treatment of her disease state. Patient understands he is a bit tearful secondary to her declining health. (8) Obesity (BMI 30.0-34.9) Current Visit: Yes Status: Acute Plan to address problem: Diet and exercise as lifestyle modification. Subjective Date of service: 09/18/20 Principal diagnosis: Hypertensive emergency vaginal bleeding Interval history: 45-year-old -[place] female with history of uncontrolled hypertension who presents to ED with cc of prolonged vaginal bleeding x2 weeks. Patient states she had a heavy menstrual cycle which progressed to worsening bleeding with multiple large clots. Patient admits to history of menorrhagia but denies prolonged vaginal bleeding. Additionally she complains of generalized weakness, dyspnea on exertion, fatigue and palpitations. Patient has history of hypertension but admits to being off medication for the past year. While in the ED patient blood pressure was 250/140 and she was noted to be in hypertensive urgency, subsequently started on heparin drip. . Denies chest pain fever, chills, sore throat, hematuria, hematochezia, abdominal pain, oliguria, recent sick contacts 09/16--patient hemodynamically stable. No evidence of stroke. Minimal headache. Will wean patient from Cardene drip today place patient on p.o. medications clonidine 0.1 mg 3 times daily we will also add amlodipine and metoprolol 50 twice daily. Patient's blood pressure was much better controlled able to discontinue Cardene drip and sent to telemetry floor. 09/17--bleeding has improved. Remains hemodynamically stable. Blood pressure much better controlled 151/74. We will continue to dose titrate as indicated. Weaned Cardene drip. Complete. Hospital course uncomplicated overnight. 09/18 patient has had significant improvement over p.m. No bleeding. Blood pressure even much better controlled at 138-140/75. We will continue oral antihypertensives as we are doing now. Patient has 24-hour urine creatinine to be completed tomorrow at 11 AM. Patient will be able to discharge tomorrow at 11 AM. 1/2: Additional unit of PRBC given today, follow with PCP, RENAL and Cardiology for repeat studies. Counselling provided. Pt verbalized understanding Disposition: DC-01 TO HOME OR SELFCARE Time spent for discharge: 35 MINS Core Measure Documentation - Palliative Care Palliative Care/ Comfort Measures: Not Applicable Exam - Constitutional Vitals: Temp Pulse Resp BP Pulse Ox 98.2 F 64 16 146/92 100 09/19/20 05:13 09/19/20 08:01 09/19/20 05:13 09/19/20 08:01 09/19/20 05:13 Plan Activity: advance as tolerated, fall precautions Diet: renal Special Instructions: restrict fluid intake to (1000CC/HR), record daily BP diary Follow up with: PRIMARY CARE, [Primary Care Provider] - 3-5 Days TAMIKA TADEO MD [Staff Physician] - 7 Days DUNCAN FRAZIER MD [Staff Physician] - 7 Days SHILO NEGRON MD [Staff Physician] - 7 Days Prescriptions: amLODIPine 10 mg PO QDAY #30 tablet cloNIDine [Catapres] 0.1 mg PO Q8HR #90 tablet Docusate Sodium [Colace CAP] 100 mg PO BID #10 capsule Hydralazine HCl 50 mg PO TID #90 tablet Metoprolol [Lopressor TAB] 50 mg PO BID #60 tablet oxyCODONE /ACETAMINOPHEN [Percocet 5/325 mg] 1 tab PO Q6H PRN #12 tablet PRN Reason: Pain, Moderate (4-6) ALPRAZolam [Xanax TAB] 0.25 mg PO BID PRN #14 tab PRN Reason: Anxiety
[2020-09-19] MEDS: DOCUSATE SODIUM 100 MG CAP PO SCH (10:09)
[2020-09-19] MEDS: METOPROLOL TARTRATE 50 MG TAB PO SCH (10:09)
[2020-09-19] MEDS: amLODIPine 10 MG TAB PO SCH (10:10)
[2020-09-19 10:25] LABS: Myeloperoxidase Antibody <1.0 AI (<1.0)
[2020-09-19 13:10] VITALS: BP 127/77
[2020-09-19] MEDS: ALPRAZolam 0.5 MG TAB PO PRN (13:13)
[2020-09-20 06:21] LABS: Albumin 3.5 g/dL (3.8-4.8)
[2020-09-21 23:02] LABS: ANA Screen, IFA Negative (Negative)
== END 2020-09-19 17:03 | disposition home or self-care (01) | DRG 682 ==
LOC: ED 14:44 → CC1 19:48 → 4A 09-16 15:30 → OBSVTOIN 09-16 16:31 → 4A 09-16 21:08
PROVIDERS: ADMIT Internal Medicine; ATTEND Internal Medicine
PROC: 30233N1 Transfusion of Nonautologous Red Blood Cells into Peripheral Vein, Percutaneous Approach (ICD-10-PCS; principal; 2020-09-15)
DX: N17.9 Acute kidney failure, unspecified (principal); I21.A1 Myocardial infarction type 2; I16.1 Hypertensive emergency; D62 Acute posthemorrhagic anemia; N93.9 Abnormal uterine and vaginal bleeding, unspecified; N92.0 Excessive and frequent menstruation with regular cycle; F17.200 Nicotine dependence, unspecified, uncomplicated; N83.202 Unspecified ovarian cyst, left side; D21.9 Benign neoplasm of connective and other soft tissue, unspecified; N18.9 Chronic kidney disease, unspecified; D69.6 Thrombocytopenia, unspecified; E66.9 Obesity, unspecified; I12.9 Hypertensive chronic kidney disease with stage 1 through stage 4 chronic kidney disease, or unspecified chronic kidney disease; Z68.30 Body mass index [BMI] 30.0-30.9, adult; Z91.14 Patient's other noncompliance with medication regimen; Z82.49 Family history of ischemic heart disease and other diseases of the circulatory system
CPT/HCPCS: 36415; 71045; 76770; 76856; 80048; 80053; 80061; 82728; 82962; 83036; 83550; 83970; 84165; 84484; 84702; 85007; 85025; 86021; 86038; 86160; 86706; 86803; 86850; 86900; 86901; 86920; 89050; 93005; 93306; G0378; J0360; J7040; P9016

== ENCOUNTER 2020-09-28 07:47 | Emergency (ER) | payer OTHER ==
--- NOTE | 2020-09-28 07:50 | Emergency Department Report ---
Blank Doc - Documentation Documentation: 45-year-old female that presents with generalized weakness and uncontrolled HTN. Stated has been started on new blood pressure medications last week. Denies any headache. Patient was admitted last week for low H/H. This initial assessment/diagnostic orders/clinical plan/treatment(s) is/are subject to change based on patient's health status, clinical progression and re- assessment by fellow clinical providers in the ED. Further treatment and workup at subsequent clinical providers discretion. Patient/guardians urged not to elope from the ED as their condition may be serious if not clinically assessed and managed. Initial orders include: 1- Patient sent to [facility] for further evaluation and treatment 2- labs 3- EKG
[2020-09-28] MEDS ORDERED: cloNIDine 0.2 MG TAB PO ONE (08:30)
--- NOTE | 2020-09-28 08:35 | Emergency Department Report ---
HPI - General Chief Complaint: Weakness Time Seen by Provider: 09/28/20 07:48 - HPI HPI: Room 34 The patient came to the emergency department with a chief complaint of "feeling 6." The patient states last night she was "not feeling normal." The patient has a hard time describing her symptoms stating at times "something is going on with my hands and legs." Patient states her extremities felt heavy and light at the same time. Patient admits to intermittent palpitations and feeling lightheaded. The patient states she would cough or felt like she was getting choked whenever she would lay down to go to sleep last night. Patient denies chest pain or fever but admits to occasional shortness of breath. Of note the patient was admitted to this hospital last week secondary to symptomatic anemia and menorrhagia. Patient states she has not had any vaginal bleeding since her last admission ED Past Medical Hx - Past Medical History Previous Medical History?: Yes Hx Hypertension: Yes - Surgical History Additional Surgical History: D&C, umbilical herniorrhaphy - Family History Family history: no significant - Social History Smoking Status: Former Smoker (None since August 2020) Substance Use Type: None (Denies illicit drug use), Alcohol (Occasional) - Medications Home Medications: Home Medications Medication Instructions Recorded Confirmed Last Taken Type ALPRAZolam [Xanax TAB] 0.25 mg PO BID PRN #14 tab 09/19/20 Unknown Rx Docusate Sodium [Colace CAP] 100 mg PO BID #10 capsule 09/19/20 Unknown Rx Hydralazine HCl 50 mg PO TID #90 tablet 09/19/20 Unknown Rx Metoprolol [Lopressor TAB] 50 mg PO BID #60 tablet 09/19/20 Unknown Rx amLODIPine 10 mg PO QDAY #30 tablet 09/19/20 Unknown Rx cloNIDine [Catapres] 0.1 mg PO Q8HR #90 tablet 09/19/20 Unknown Rx oxyCODONE /ACETAMINOPHEN [Percocet 1 tab PO Q6H PRN #12 tablet 09/19/20 Unknown Rx 5/325 mg] ED Review of Systems ROS: Stated complaint: HBP Other details as noted in HPI Constitutional: no symptoms reported Eyes: denies: eye pain ENT: denies: throat pain Respiratory: cough, shortness of breath Cardiovascular: palpitations. denies: chest pain Endocrine: no symptoms reported Gastrointestinal: denies: abdominal pain Genitourinary: denies: abnormal menses Musculoskeletal: denies: back pain Neurological: denies: headache Physical Exam - Physical Exam Vital Signs: Vital Signs 09/28/20 07:57 Temperature 98.4 F Pulse Rate 69 Respiratory 18 Rate Blood Pressure 201/122 [Right] O2 Sat by Pulse 100 Oximetry Physical Exam: GENERAL: The patient is well-developed well-nourished female sitting on stretcher not appearing to be in acute distress. [] HEENT: Normocephalic. Atraumatic. Extraocular motions are intact. Patient has moist mucous membranes. NECK: Supple. No meningitic signs are noted. T trachea midline CHEST/LUNGS: Clear to auscultation. There is no respiratory distress noted. HEART/CARDIOVASCULAR: Regular. There is no tachycardia. There is no gallop rub or murmur. ABDOMEN: Abdomen is soft, nontender. Patient has normal bowel sounds. There is no abdominal distention. SKIN: There is no rash. There is no edema. There is no diaphoresis. NEURO: The patient is awake, alert, and oriented. The patient is cooperative. The patient has no focal neurologic deficits. The patient has normal speech and gait. Cranial nerves II through XII grossly intact MUSCULOSKELETAL:There is no evidence of acute injury. ED Course Vital Signs 09/28/20 07:57 Temperature 98.4 F Pulse Rate 69 Respiratory 18 Rate Blood Pressure 201/122 [Right] O2 Sat by Pulse 100 Oximetry ED Medical Decision Making - Lab Data Result diagrams: 09/28/20 08:38 09/28/20 08:38 Laboratory Tests 09/28/20 09/28/20 09/28/20 08:38 08:38 08:38 WBC 6.5 RBC 3.30 L Hgb 7.7 L Hct 24.6 L MCV 75 L MCH 24 L MCHC 32 RDW 18.8 H Plt Count 257 Lymph % (Auto) 16.0 [place] % (Auto) 8.1 H Eos % (Auto) 4.1 Baso % (Auto) 0.7 Lymph # (Auto) 1.0 L [place] # (Auto) 0.5 Eos # (Auto) 0.3 Baso # (Auto) 0.0 Seg Neutrophils % 71.1 H Seg Neutrophils # 4.6 PT 13.6 INR 1.05 APTT 31.1 Sodium 138 Potassium 3.5 L Chloride 99.1 Carbon Dioxide 32 H Anion Gap 10 BUN 35 H Creatinine 3.8 H Estimated GFR 16 BUN/Creatinine Ratio 9 Glucose 126 H Calcium 8.8 Total Bilirubin < 0.20 AST 11 ALT 13 Alkaline Phosphatase 52 Troponin T 0.011 NT-Pro-B Natriuret Pep Total Protein 6.2 L Albumin 3.7 L Albumin/Globulin Ratio 1.5 TSH Free T4 Blood Type Antibody Screen 09/28/20 09/28/20 09/28/20 08:38 08:38 08:38 WBC RBC Hgb Hct MCV MCH MCHC RDW Plt Count Lymph % (Auto) [place] % (Auto) Eos % (Auto) Baso % (Auto) Lymph # (Auto) [place] # (Auto) Eos # (Auto) Baso # (Auto) Seg Neutrophils % Seg Neutrophils # PT INR APTT Sodium Potassium Chloride Carbon Dioxide Anion Gap BUN Creatinine Estimated GFR BUN/Creatinine Ratio Glucose Calcium Total Bilirubin AST ALT Alkaline Phosphatase Troponin T NT-Pro-B Natriuret Pep 5103 H Total Protein Albumin Albumin/Globulin Ratio TSH 4.910 H Free T4 1.30 Blood Type A POSITIVE Antibody Screen Negative - Radiology Data Radiology results: report reviewed (Chest x-ray), image reviewed (Chest x-ray) interpreted by me: Chest x-ray-no focal infiltrates, no pneumothorax. [place] [address] XRay Report Signed Patient: JAKOB LUX MR#: [id number] 82 : 1975 Acct:[id number] Age/Sex: 45 / F ADM Date: 09/28/20 Loc: ED Attending Dr: Order ing Physician: YOLI MARSHALL NP Date of Service: 09/28/20 Procedure(s): XR chest routine 2V Accession Number(s): [id number] cc: YOLI MARSHALL NP Fluoro Time In Minutes: CHEST 2 VIEWS INDICATION / CLINICAL INFORMATION: Chest Pain. COMPARISON: 09/15/2020 FINDINGS: SUPPORT DEVICES: None. HEART / MEDIASTINUM: No significant abnormality. LUNGS / PLEURA: No focal infiltrate is seen. No pneumothorax is seen. There is mild blunting of the left costophrenic angle. No pneumothorax. ADDITIONAL FINDINGS: No significant additional findings. IMPRESSION: No significant change. Signer Name: Ayan Paige MD Signed: 09/28/2020 8:39 AM Workstation Name: [email or web address] Transcribed By: SS Dictated By: Ayan Paige MD Electronically Authenticated By: Ayan Paige MD Signed Date/Time: 09/28/20838 DD/ 7 TD/TT: - Differential Diagnosis Hypothyroidism, symptomatic anemia, uncontrolled hypertension, intracranial Critical care attestation.: If time is entered above; I have spent that time in minutes in the direct care of this critically ill patient, excluding procedure time. ED Disposition Clinical Impression: Uncontrolled hypertension, Renal insufficiency Disposition: - TO HOME OR SELFCARE Is pt being admited?: No Does the pt Need Aspirin: No Condition: Stable Instructions: Hypertension (ED) Additional Instructions: Return to the emergency department should you develop worsening symptoms, inability to tolerate food or liquids, high fever or any other concerns Referrals: [facility] [Provider Group] - TAMIKA RENE MD [Staff Physician] - 3-5 Days (Dr. Bolton is a coil winder (kidney doctor). Please follow-up with him for further evaluation) Time of Disposition: 11:01
--- NOTE | 2020-09-28 08:44 | XRay Report ---
CHEST 2 VIEWS INDICATION / CLINICAL INFORMATION: Chest Pain. COMPARISON: 09/15/2020 FINDINGS: SUPPORT DEVICES: None. HEART / MEDIASTINUM: No significant abnormality. LUNGS / PLEURA: No focal infiltrate is seen. No pneumothorax is seen. There is mild blunting of the l eft costophrenic angle. No pneumothorax. ADDITIONAL FINDINGS: No significant additional findings. IMPRESSION: No significant change. Signer Name: Ayan Paige MD Signed: 09/28/2020 8:39 AM Workstation Name: [id number]
[2020-09-28 08:55] LABS: Basophils % (Auto) 0.7 % (0.0-1.8); Eosinophils # (Auto) 0.3 K/mm3 (0.0-0.4); Eosinophils % (Auto) 4.1 % (0.0-4.3); Hematocrit 24.6 % (30.3-42.9); Hemoglobin 7.7 gm/dl (10.1-14.3); Mean Corpuscular HGB Conc 32 % (30-34); Mean Corpuscular Volume 75 fl (79-97); Monocytes # (Auto) 0.5 K/mm3 (0.0-0.8); Monocytes % (Auto) 8.1 % (0.0-7.3); Platelet Count 257 K/mm3 (140-440); Red Cell Distribution Width 18.8 % (13.2-15.2)
[2020-09-28 09:05] LABS: INR 1.05 (0.87-1.13)
[2020-09-28 09:06] LABS: Partial Thromboplastin Time 31.1 Sec. (24.2-36.6)
[2020-09-28 09:20] LABS: Alanine Aminotransferase 13 units/L (7-56); Albumin 3.7 g/dL (3.9-5); Blood Urea Nitrogen 35 mg/dL (7-17); Calcium 8.8 mg/dL (8.4-10.2); Hemolysis Index 0
[2020-09-28 09:21] LABS: BUN/Creatinine Ratio 9
[2020-09-28 09:28] LABS: Free T4 (Free Thyroxine) 1.3 ng/dL (0.76-1.46)
[2020-09-28 11:11] VITALS: BP 165/95
== END 2020-09-28 11:15 | disposition home or self-care (01) ==
LOC: ED 07:47
DX: I10 Essential (primary) hypertension (principal); N28.9 Disorder of kidney and ureter, unspecified; Z79.899 Other long term (current) drug therapy; Z98.890 Other specified postprocedural states; Z87.891 Personal history of nicotine dependence
CPT/HCPCS: 36415; 71046; 80053; 83880; 84439; 84443; 84484; 85025; 85610; 85730; 86850; 86900; 86901; 93005